=== PATIENT | male | born 1955 | race Caucasian/White ===

== ENCOUNTER 2019-05-16 07:17 | Outpatient (CLI) | payer OTHER, SELFPAY ==
[2019-05-16 07:34] LABS: Add Urine Microscopic? NO; Appearance Urine Clear (Clear); Basophils Absolute Auto 0.02 K/mm3 (0.00-0.10); Basophils Percent Auto 0.3 % (0.0-1.0); Bilirubin Urine Negative (Negative); Blood Urine Negative (Negative); Color Urine Yellow (Yellow); Eosinophils Absolute Auto 0.05 K/mm3 (0.02-0.50); Eosinophils Percent Auto 0.8 % (1.0-6.0); Glucose Urine UA Negative (Negative); Hematocrit 46.9 % (40.0-54.0); Hemoglobin 16.2 g/dL (14.0-18.0); Immature Granulocyte Absolute 0.02 K/mm3 (0.00-0.00); Immature Granulocyte Percent A 0.3 % (0.0-0.0); Ketones Urine Negative (Negative); Leukocyte Esterase Ur Negative LEU/UL (Negative); Lymphocytes Percent Auto 26.2 % (18.0-42.0); Mean Corpuscular HGB Conc 34.5 g/dL (32.0-36.0); Mean Corpuscular Hemoglobin 29.1 pg (27.0-31.0); Mean Corpuscular Volume 84.4 fL (78.0-102.0); Mean Platelet Volume 10.4 fl (8.7-11.0); Monocytes Absolute Auto 0.44 K/mm3 (0.10-0.90); Monocytes Percent Auto 6.8 % (2.0-11.0); Neutrophils Absolute Auto 4.3 K/mm3 (1.7-7.2); Neutrophils Percent Auto 65.6 % (50.0-70.0); Nitrate Urine Negative (Negative); Platelet Count Result 177 K/mm3 (150-420); Protein Urine Negative (Negative); Red Blood Count 5.56 M/mm3 (4.70-6.10); Red Cell Distribution Width 12.8 % (11.6-14.4); Urobilinogen Urine 0.2 mg/dL (0.2-1.0); White Blood Count 6.5 K/mm3 (4.8-10.8); pH Urine 5.5 (5.0-8.0)
[2019-05-16 07:43] LABS: Hemoglobin A1C 7.3 % (<5.7)
[2019-05-16 08:19] LABS: Creatinine Urine 127.42 mg/dL (40-278)
[2019-05-16 08:46] LABS: MALB Creatinine Ratio 9.6 mg/g (0-30); Microalbumin Urine Random 12.3 mg/L
[2019-05-16 08:54] LABS: Alanine Aminotransferase 53 U/L (16-63); Albumin Level 4.5 g/dL (3.4-5.0); Alkaline Phosphatase 65 U/L (46-116); Anion Gap 13.2 mmol/L (7-16); Aspartate Amino Transferase 23 U/L (15-37); Bilirubin,Total 0.8 mg/dL (0.00-1.00); Blood Urea Nitrogen 15 mg/dL (7-18); Calcium 9.2 mg/dL (8.5-10.1); Carbon Dioxide 32 mmol/L (21-32); Chloride 100 mmol/L (98-108); Cholesterol 190 mg/dL (0-200); Creatine Kinase 100 U/L (39-308); Estimated Glomerular Filt Rate > 60; Free T4 Free Thyroxine 1.12 ng/dL (0.76-1.46); Glucose 196 mg/dL (70-99); HDL Direct 35 mg/dL (40-60); LDL Cholesterol Calculated 110 mg/dL (<130); Osmolality Calculated 297 mOsm/kg (285-295); Potassium 4.2 mmol/L (3.5-5.1); Prostate Specific Antigen 0.5 ng/mL (< OR = 4.0); Sodium 141 mmol/L (136-145); Thyroid Stimulating Hormone 1.57 uIU/mL (0.36-3.74); Total Protein 7.9 g/dL (6.4-8.2); Triglycerides 223 mg/dL (0-150); Uric Acid 5.7 mg/dL (3.5-7.2)
== END 2019-05-16 07:18 | disposition home or self-care (01) ==
PROVIDERS: PCP Internal Medicine; Visit Provider Internal Medicine
DX: E78.5 Hyperlipidemia, unspecified (principal); E79.0 Hyperuricemia without signs of inflammatory arthritis and tophaceous disease; I10 Essential (primary) hypertension; E03.9 Hypothyroidism, unspecified; E11.65 Type 2 diabetes mellitus with hyperglycemia; Z12.5 Encounter for screening for malignant neoplasm of prostate
CPT/HCPCS: 36415; 80053; 80061; 81003; 82043; 82550; 83036; 84153; 84439; 84443; 84550; 85025; G0103

== ENCOUNTER 2019-09-13 13:21 | Outpatient (CLI) | payer OTHER, SELFPAY ==
--- NOTE | ~2019-09-13 | XR_ITS ---
EXAMINATION: XR foot LT min 3V DATE: 09/13/2019 13:39 INDICATION: Left foot pain, initial encounter TECHNIQUE: Dorsoplantar, lateral, and 2 oblique views of the left foot were obtained. COMPARISON: 12/31/2006 FINDINGS: There is an acute, traumatic, comminuted fracture of the first distal phalanx. Soft tissue swelling surrounds the fracture. The joint spaces are normal. No additional acute osseous findings ar e evident. Dorsal calcaneal enthesophyte is noted. IMPRESSION: 1. Comminuted fracture of the first distal phalanx. Reviewed, dictated and finalized at location A.
== END 2019-09-13 13:22 | disposition home or self-care (01) ==
PROVIDERS: PCP Internal Medicine; Visit Provider Internal Medicine
DX: S99.922A Unspecified injury of left foot, initial encounter (principal)
CPT/HCPCS: 73630

== ENCOUNTER 2019-10-28 07:26 | Outpatient (CLI) | payer OTHER, SELFPAY ==
[2019-10-28 07:39] LABS: Add Urine Microscopic? NO; Appearance Urine Clear (Clear); Bilirubin Urine Negative (Negative); Blood Urine Negative (Negative); Color Urine Yellow (Yellow); Glucose Urine UA Negative (Negative); Ketones Urine Negative (Negative); Leukocyte Esterase Ur Negative (Negative); Nitrate Urine Negative (Negative); Protein Urine Negative (Negative); Urobilinogen Urine 0.2 mg/dL (0.2-1.0); pH Urine 5.5 (5.0-8.0)
[2019-10-28 07:48] LABS: Creatinine Urine 99.31 mg/dL (40-278)
[2019-10-28 07:50] LABS: Hemoglobin A1C 6.9 % (<5.7)
[2019-10-28 07:57] LABS: MALB Creatinine Ratio 2.4 mg/g (0-30); Microalbumin Urine Random 2.4 mg/L
[2019-10-28 08:42] LABS: Alanine Aminotransferase 36 U/L (16-63); Albumin Level 3.9 g/dL (3.4-5.0); Alkaline Phosphatase 67 U/L (46-116); Anion Gap 7 mmol/L (8-16); Aspartate Amino Transferase 19 U/L (15-37); Bilirubin,Total 0.4 mg/dL (0.00-1.00); Blood Urea Nitrogen 15 mg/dL (7-18); Calcium 8.4 mg/dL (8.5-10.1); Carbon Dioxide 31 mmol/L (21-32); Chloride 103 mmol/L (98-108); Cholesterol 172 mg/dL (0-200); Creatine Kinase 131 U/L (39-308); Estimated Glomerular Filt Rate > 60; Glucose 174 mg/dL (70-99); HDL Direct 40 mg/dL (40-60); LDL Cholesterol Calculated 108 mg/dL (<130); Osmolality Calculated 296 mOsm/kg (285-295); Potassium 4.4 mmol/L (3.5-5.1); Prostate Specific Antigen 0.5 ng/mL (< OR = 4.0); Sodium 141 mmol/L (136-145); Thyroid Stimulating Hormone 0.91 uIU/mL (0.36-3.74); Triglycerides 119 mg/dL (0-150)
== END 2019-10-28 07:27 | disposition home or self-care (01) ==
LOC: CHSLAB 07:27
PROVIDERS: PCP Internal Medicine; Visit Provider Internal Medicine
DX: E78.2 Mixed hyperlipidemia (principal); I10 Essential (primary) hypertension; E11.65 Type 2 diabetes mellitus with hyperglycemia; E03.4 Atrophy of thyroid (acquired); Z12.5 Encounter for screening for malignant neoplasm of prostate
CPT/HCPCS: 36415; 80053; 80061; 81003; 82043; 82550; 83036; 84153; 84439; 84443; G0103

== ENCOUNTER 2020-02-13 16:10 | Outpatient (CLI) | payer OTHER, SELFPAY ==
--- NOTE | ~2020-02-13 | US_ITS ---
EXAMINATION: US scrotum doppler DATE: 02/13/2020 17:03 INDICATION: Hydrocele TECHNIQUE: Testicular sonogram utilizing grayscale and Doppler COMPARISON: None. FINDINGS: The right testis measures 4.8 x 3.9 x 2.9 cm. The left testis measures 4.4 x 3.9 x 3.1 cm. Symmetric normal grayscale appearance to both testes. There is normal vascular flow to both testes. There are l arge loculated anechoic fluid collections surrounding both the left and right testes, right larger th an left. On the left and right the fluid collection is by a few thin intervening septations . The left and right epididymides are poorly visualized and appeared distorted due to mass effect fro m the fluid collections. No varicocele. IMPRESSION: 1. Large bilateral septated anechoic peritesticular fluid collections which could represent either s equela of chronic exudative hydroceles or potentially large bilateral epididymal cysts. 2. Normal bilateral testes. Reviewed, dictated and finalized at location . T PROBATION OFFICER IMPRESSION: 1. Large bilateral septated anechoic peritesticular fluid collections which co uld represent either sequela of chronic exudative hydroceles or potentially lar ge bilateral epididymal cysts. 2. Normal bilateral testes.
== END 2020-02-13 16:11 | disposition home or self-care (01) ==
PROVIDERS: PCP Internal Medicine; Visit Provider Internal Medicine
DX: N43.3 Hydrocele, unspecified (principal)
CPT/HCPCS: 76870; 93976

== ENCOUNTER 2020-04-02 07:01 | Outpatient (CLI) | payer OTHER, SELFPAY ==
[2020-04-03 18:18] LABS: SARS-CoV-2 RNA PCR Negative
== END 2020-04-02 07:02 | disposition home or self-care (01) ==
PROVIDERS: PCP Internal Medicine; Visit Provider Nurse Practitioner Adult Health
DX: Z01.818 Encounter for other preprocedural examination (principal); Z20.822 Contact with and (suspected) exposure to COVID-19
CPT/HCPCS: C9803; U0003; U0005

== ENCOUNTER 2020-04-30 08:33 | Outpatient (CLI) | payer OTHER, SELFPAY ==
[2020-04-30 08:46] LABS: Basophils Absolute Auto 0.03 K/mm3 (0.00-0.10); Basophils Percent Auto 0.6 % (0.0-1.0); Eosinophils Absolute Auto 0.14 K/mm3 (0.02-0.50); Eosinophils Percent Auto 2.8 % (1.0-6.0); Hematocrit 42.5 % (40.0-54.0); Hemoglobin 14.8 g/dL (14.0-18.0); Immature Granulocyte Absolute 0.01 K/mm3 (0.00-0.00); Immature Granulocyte Percent A 0.2 % (0.0-0.0); Lymphocytes Percent Auto 28.3 % (18.0-42.0); Mean Corpuscular HGB Conc 34.8 g/dL (32.0-36.0); Mean Corpuscular Hemoglobin 29.5 pg (27.0-31.0); Mean Corpuscular Volume 84.8 fL (78.0-102.0); Mean Platelet Volume 9.9 fl (8.7-11.0); Monocytes Absolute Auto 0.37 K/mm3 (0.10-0.90); Monocytes Percent Auto 7.5 % (2.0-11.0); Neutrophils Percent Auto 60.6 % (50.0-70.0); Platelet Count Result 169 K/mm3 (150-420); Red Blood Count 5.01 M/mm3 (4.70-6.10); Red Cell Distribution Width 12.7 % (11.6-14.4)
[2020-04-30 08:48] LABS: Add Urine Microscopic? NO; Appearance Urine Clear (Clear); Bilirubin Urine Negative (Negative); Blood Urine Negative (Negative); Color Urine Yellow (Yellow); Glucose Urine UA Negative (Negative); Ketones Urine Negative (Negative); Leukocyte Esterase Ur Negative LEU/UL (Negative); Nitrate Urine Negative (Negative); Protein Urine Negative (Negative); Specific Grav Ur 1.025 (1.010-1.020); Urobilinogen Urine 0.2 mg/dL (0.2-1.0)
[2020-04-30 08:56] LABS: Hemoglobin A1C 6.5 % (<5.7)
[2020-04-30 09:01] LABS: Creatinine Urine 136.86 mg/dL (40-278); MALB Creatinine Ratio 9.4 mg/g (0-30); Microalbumin Urine Random < 13.0 mg/L
[2020-04-30 09:31] LABS: Alanine Aminotransferase 28 U/L (16-63); Albumin Level 4.1 g/dL (3.4-5.0); Alkaline Phosphatase 74 U/L (46-116); Anion Gap 9 mmol/L (8-16); Aspartate Amino Transferase 14 U/L (15-37); Bilirubin,Total 0.4 mg/dL (0.00-1.00); Blood Urea Nitrogen 16 mg/dL (7-18); Calcium 9.2 mg/dL (8.5-10.1); Carbon Dioxide 31 mmol/L (21-32); Chloride 103 mmol/L (98-108); Cholesterol 185 mg/dL (0-200); Creatine Kinase 101 U/L (39-308); Estimated Glomerular Filt Rate > 60; Free T4 Free Thyroxine 0.96 ng/dL (0.76-1.46); Glucose 155 mg/dL (70-99); HDL Direct 39 mg/dL (40-60); LDL Cholesterol Calculated 113 mg/dL (<130); Osmolality Calculated 300 mOsm/kg (285-295); Potassium 4.4 mmol/L (3.5-5.1); Sodium 143 mmol/L (136-145); Thyroid Stimulating Hormone 1.47 uIU/mL (0.36-3.74); Total Protein 7.1 g/dL (6.4-8.2); Triglycerides 166 mg/dL (0-150); Uric Acid 5.8 mg/dL (3.5-7.2)
== END 2020-04-30 08:34 | disposition home or self-care (01) ==
LOC: CHSLAB 08:35
PROVIDERS: PCP Internal Medicine; Visit Provider Internal Medicine
DX: E78.5 Hyperlipidemia, unspecified (principal); I10 Essential (primary) hypertension; E79.0 Hyperuricemia without signs of inflammatory arthritis and tophaceous disease; E11.65 Type 2 diabetes mellitus with hyperglycemia; E03.9 Hypothyroidism, unspecified; Z20.822 Contact with and (suspected) exposure to COVID-19
CPT/HCPCS: 36415; 80053; 80061; 81003; 82043; 82550; 83036; 84439; 84443; 84481; 84550; 85025; 86769

== ENCOUNTER 2020-11-02 06:49 | Outpatient (CLI) | payer OTHER, SELFPAY ==
[2020-11-02 07:17] LABS: Basophils Absolute Auto 0.03 K/mm3 (0.00-0.10); Basophils Percent Auto 0.6 % (0.0-1.0); Eosinophils Absolute Auto 0.08 K/mm3 (0.02-0.50); Eosinophils Percent Auto 1.5 % (1.0-6.0); Hematocrit 45.7 % (40.0-54.0); Hemoglobin 15.8 g/dL (14.0-18.0); Immature Granulocyte Absolute 0.01 K/mm3 (0.00-0.00); Immature Granulocyte Percent A 0.2 % (0.0-0.0); Lymphocytes Absolute Auto 1.67 K/mm3 (1.10-4.50); Mean Corpuscular HGB Conc 34.6 g/dL (32.0-36.0); Mean Corpuscular Hemoglobin 29.9 pg (27.0-31.0); Mean Corpuscular Volume 86.4 fL (78.0-102.0); Mean Platelet Volume 10.2 fl (8.7-11.0); Monocytes Absolute Auto 0.42 K/mm3 (0.10-0.90); Monocytes Percent Auto 7.8 % (2.0-11.0); Neutrophils Absolute Auto 3.2 K/mm3 (1.7-7.2); Neutrophils Percent Auto 58.9 % (50.0-70.0); Platelet Count Result 182 K/mm3 (150-420); Red Blood Count 5.29 M/mm3 (4.70-6.10); Red Cell Distribution Width 12.8 % (11.6-14.4); White Blood Count 5.4 K/mm3 (4.8-10.8)
[2020-11-02 07:21] LABS: Add Urine Microscopic? NO; Appearance Urine Clear (Clear); Bilirubin Urine Negative (Negative); Blood Urine Negative (Negative); Color Urine Light Yellow (Yellow); Glucose Urine UA Negative (Negative); Ketones Urine Negative (Negative); Leukocyte Esterase Ur Negative (Negative); Nitrate Urine Negative (Negative); Protein Urine Negative (Negative); Urobilinogen Urine 0.2 mg/dL (0.2-1.0)
[2020-11-02 07:25] LABS: Creatinine Urine 89.69 mg/dL (40-278); MALB Creatinine Ratio 14.4 mg/g (0-30); Microalbumin Urine Random < 13.0 mg/L
[2020-11-02 07:27] LABS: Hemoglobin A1C 6.9 % (<5.7)
[2020-11-02 08:19] LABS: Alanine Aminotransferase 35 U/L (16-63); Albumin Level 4.1 g/dL (3.4-5.0); Alkaline Phosphatase 71 U/L (46-116); Anion Gap 6 mmol/L (8-16); Aspartate Amino Transferase 19 U/L (15-37); Bilirubin,Total 0.4 mg/dL (0.00-1.00); Blood Urea Nitrogen 18 mg/dL (7-18); Calcium 8.9 mg/dL (8.5-10.1); Carbon Dioxide 31 mmol/L (21-32); Chloride 105 mmol/L (98-108); Cholesterol 187 mg/dL (0-200); Creatine Kinase 196 U/L (39-308); Estimated Glomerular Filt Rate > 60; Free T3 2.77 pg/mL (2.18-3.98); Free T4 Free Thyroxine 1.02 ng/dL (0.76-1.46); Glucose 152 mg/dL (70-99); HDL Direct 40 mg/dL (40-60); LDL Cholesterol Calculated 117 mg/dL (<130); Osmolality Calculated 298 mOsm/kg (285-295); Potassium 4.3 mmol/L (3.5-5.1); Prostate Specific Antigen 0.5 ng/mL (< OR = 4.0); Sodium 142 mmol/L (136-145); Thyroid Stimulating Hormone 0.92 uIU/mL (0.36-3.74); Total Protein 7.4 g/dL (6.4-8.2); Triglycerides 150 mg/dL (0-150); Uric Acid 5.7 mg/dL (3.5-7.2)
== END 2020-11-02 06:50 | disposition home or self-care (01) ==
LOC: CHSLAB 06:51
PROVIDERS: PCP Internal Medicine; Visit Provider Internal Medicine
DX: E78.5 Hyperlipidemia, unspecified (principal); E79.0 Hyperuricemia without signs of inflammatory arthritis and tophaceous disease; I10 Essential (primary) hypertension; E03.9 Hypothyroidism, unspecified; E11.65 Type 2 diabetes mellitus with hyperglycemia; Z12.5 Encounter for screening for malignant neoplasm of prostate
CPT/HCPCS: 36415; 80053; 80061; 81003; 82043; 82550; 83036; 84153; 84439; 84443; 84481; 84550; 85025; G0103

== ENCOUNTER 2021-04-28 07:29 | Outpatient (CLI) | payer OTHER, SELFPAY ==
[2021-04-28 07:50] LABS: Add Urine Microscopic? NO; Appearance Urine Clear (Clear); Bilirubin Urine Negative (Negative); Blood Urine Negative (Negative); Color Urine Light Yellow (Yellow); Glucose Urine UA Negative (Negative); Ketones Urine Negative (Negative); Leukocyte Esterase Ur Negative (Negative); Nitrate Urine Negative (Negative); Protein Urine Negative (Negative); Urobilinogen Urine 0.2 mg/dL (0.2-1.0)
[2021-04-28 08:02] LABS: Hemoglobin A1C 6.5 % (<5.7)
[2021-04-28 08:05] LABS: MALB Creatinine Ratio 13.9 mg/g (0-30); Microalbumin Urine Random < 13.0 mg/L
[2021-04-28 08:54] LABS: Alanine Aminotransferase 27 U/L (16-63); Alkaline Phosphatase 68 U/L (46-116); Anion Gap 8 mmol/L (8-16); Aspartate Amino Transferase 14 U/L (15-37); Bilirubin,Total 0.4 mg/dL (0.00-1.00); Blood Urea Nitrogen 16 mg/dL (7-18); Calcium 8.9 mg/dL (8.5-10.1); Carbon Dioxide 32 mmol/L (21-32); Chloride 100 mmol/L (98-108); Cholesterol 180 mg/dL (0-200); Creatine Kinase 101 U/L (39-308); Estimated Glomerular Filt Rate > 60; Free T3 2.52 pg/mL (2.18-3.98); Free T4 Free Thyroxine 0.91 ng/dL (0.76-1.46); Glucose 145 mg/dL (70-99); HDL Direct 41 mg/dL (40-60); LDL Cholesterol Calculated 113 mg/dL (<130); Osmolality Calculated 294 mOsm/kg (285-295); Potassium 3.9 mmol/L (3.5-5.1); Sodium 140 mmol/L (136-145); Thyroid Stimulating Hormone 1.36 uIU/mL (0.36-3.74); Triglycerides 130 mg/dL (0-150)
== END 2021-04-28 07:30 | disposition home or self-care (01) ==
LOC: CHSLAB 07:31
PROVIDERS: PCP Internal Medicine; Visit Provider Internal Medicine
DX: E78.2 Mixed hyperlipidemia (principal); I10 Essential (primary) hypertension; E79.0 Hyperuricemia without signs of inflammatory arthritis and tophaceous disease; E03.8 Other specified hypothyroidism; E11.65 Type 2 diabetes mellitus with hyperglycemia
CPT/HCPCS: 36415; 80053; 80061; 81003; 82043; 82550; 83036; 84439; 84443; 84481

== ENCOUNTER 2021-08-26 11:34 | Outpatient (CLI) | payer MEDICARE, SELFPAY ==
--- NOTE | ~2021-08-26 | XR_ITS ---
XR lumbar spine 2-3V 08/26/2021 12:06 Indication: Back pain Procedure: 3 views of the lumbar spine Comparison: 11/07/2016 Findings: Vertebral body heights are maintained. There is disc narrowing at all lumbar levels. There is moderate facet hypertrophy at L3-4 through L5-S1. There are prominent bridging osteophytes at L1-2 and L2-3. Pedicles intact. Sacral foramen are symmetric. No acute fracture or traumatic malalignment . Impression: 1: Moderate lumbar spondylosis. Reviewed, dictated and finalized at location B. Impression: 1: Moderate lumbar spondylosis.
[2021-08-26 11:48] LABS: Hematocrit 44.2 % (37.0-46.0); Mean Corpuscular HGB Conc 33.9 g/dL (32.0-36.0); Mean Corpuscular Hemoglobin 29.6 pg (27.0-31.0); Mean Corpuscular Volume 87.2 fL (78.0-102.0); Mean Platelet Volume 10.6 fl (8.7-11.0); Platelet Count Result 115 K/mm3 (150-420); Red Blood Count 5.07 M/mm3 (4.70-6.10); White Blood Count 2.8 K/mm3 (4.8-10.8)
[2021-08-26 12:18] LABS: Creatine Kinase 88 U/L (39-308)
[2021-08-26 13:20] LABS: Band Neutrophils Percent 2 % (0-6); Eosinophils Absolute Manual 0.02 K/mm3 (0.02-0.5); Eosinophils Percent Manual 1 % (1-6); Lymphocytes Percent Manual 25 % (18-44); Monocytes Absolute Manual 0.25 K/mm3 (0.1-0.90); Monocytes Percent Manual 9 % (3-9); Myelocytes Percent 1 %; Neutrophils Absolute Manual 1.79 K/mm3 (1.3-6.7); Neutrophils Percent Manual 62 % (46-73); Platelet Estimate Adequate (Adequate); Total Cells Counted 100
[2021-08-29 19:37] LABS: Lyme Disease Ab (IgM), Blot Negative (Negative); Lyme Disease Ab(IgG), Blot Negative (Negative)
== END 2021-08-26 11:35 | disposition home or self-care (01) ==
LOC: CHSLAB 11:39
PROVIDERS: PCP Internal Medicine; Visit Provider Internal Medicine
DX: M54.50 Low back pain, unspecified (principal); M79.10 Myalgia, unspecified site; T14.8XXA Other injury of unspecified body region, initial encounter
CPT/HCPCS: 36415; 72100; 82550; 85025; 86617

== ENCOUNTER 2021-09-09 07:38 | Outpatient (CLI) | payer MEDICARE, SELFPAY ==
[2021-09-09 07:50] LABS: Basophils Absolute Auto 0.04 K/mm3 (0.00-0.10); Basophils Percent Auto 0.7 % (0.0-1.0); Eosinophils Absolute Auto 0.13 K/mm3 (0.02-0.50); Eosinophils Percent Auto 2.2 % (1.0-6.0); Hematocrit 42.9 % (37.0-46.0); Hemoglobin 14.8 g/dL (12.4-15.3); Immature Granulocyte Absolute 0.02 K/mm3 (0.00-0.00); Immature Granulocyte Percent A 0.3 % (0.0-0.0); Lymphocytes Absolute Auto 1.88 K/mm3 (1.10-4.50); Lymphocytes Percent Auto 32.1 % (18.0-42.0); Mean Corpuscular HGB Conc 34.5 g/dL (32.0-36.0); Mean Corpuscular Hemoglobin 29.8 pg (27.0-31.0); Mean Corpuscular Volume 86.5 fL (78.0-102.0); Monocytes Absolute Auto 0.53 K/mm3 (0.10-0.90); Monocytes Percent Auto 9.1 % (2.0-11.0); Neutrophils Absolute Auto 3.3 K/mm3 (1.7-7.2); Neutrophils Percent Auto 55.6 % (50.0-70.0); Platelet Count Result 146 K/mm3 (150-420); Red Blood Count 4.96 M/mm3 (4.70-6.10); Red Cell Distribution Width 13.1 % (11.6-14.4); White Blood Count 5.9 K/mm3 (4.8-10.8)
== END 2021-09-09 07:39 | disposition home or self-care (01) ==
LOC: CHSLAB 07:40
PROVIDERS: PCP Internal Medicine; Visit Provider Internal Medicine
DX: D72.819 Decreased white blood cell count, unspecified (principal)
CPT/HCPCS: 36415; 85025

== ENCOUNTER 2021-11-03 07:32 | Outpatient (CLI) | payer MEDICARE, SELFPAY ==
[2021-11-03 07:44] LABS: Basophils Absolute Auto 0.02 K/mm3 (0.00-0.10); Basophils Percent Auto 0.4 % (0.0-1.0); Eosinophils Absolute Auto 0.05 K/mm3 (0.02-0.50); Hemoglobin 15.5 g/dL (12.4-15.3); Immature Granulocyte Absolute 0.01 K/mm3 (0.00-0.00); Immature Granulocyte Percent A 0.2 % (0.0-0.0); Lymphocytes Absolute Auto 1.45 K/mm3 (1.10-4.50); Lymphocytes Percent Auto 29.2 % (18.0-42.0); Mean Corpuscular HGB Conc 34.4 g/dL (32.0-36.0); Mean Corpuscular Hemoglobin 30.1 pg (27.0-31.0); Mean Corpuscular Volume 87.4 fL (78.0-102.0); Mean Platelet Volume 10.4 fl (8.7-11.0); Monocytes Absolute Auto 0.34 K/mm3 (0.10-0.90); Monocytes Percent Auto 6.9 % (2.0-11.0); Neutrophils Absolute Auto 3.1 K/mm3 (1.7-7.2); Neutrophils Percent Auto 62.3 % (50.0-70.0); Platelet Count Result 163 K/mm3 (150-420); Red Blood Count 5.15 M/mm3 (4.70-6.10); Red Cell Distribution Width 12.6 % (11.6-14.4)
[2021-11-03 07:49] LABS: Add Urine Microscopic? NO; Appearance Urine Clear (Clear); Bilirubin Urine Negative (Negative); Blood Urine Negative (Negative); Color Urine Light Yellow (Yellow); Glucose Urine UA Negative (Negative); Ketones Urine Negative (Negative); Leukocyte Esterase Ur Negative LEU/UL (Negative); Nitrate Urine Negative (Negative); Protein Urine Negative (Negative); Urobilinogen Urine 0.2 mg/dL (0.2-1.0)
[2021-11-03 08:08] LABS: Creatinine Urine 98.16 mg/dL (40-278); MALB Creatinine Ratio 13.2 mg/g (0-30); Microalbumin Urine Random < 13.0 mg/L
[2021-11-03 08:21] LABS: Alanine Aminotransferase 29 U/L (16-63); Albumin Level 4.1 g/dL (3.4-5.0); Alkaline Phosphatase 66 U/L (46-116); Anion Gap 7 mmol/L (8-16); Aspartate Amino Transferase 14 U/L (15-37); Bilirubin,Total 0.4 mg/dL (0.00-1.00); Blood Urea Nitrogen 15 mg/dL (7-18); Calcium 8.9 mg/dL (8.5-10.1); Carbon Dioxide 30 mmol/L (21-32); Chloride 103 mmol/L (98-108); Cholesterol 162 mg/dL (0-200); Creatine Kinase 103 U/L (39-308); Estimated Glomerular Filt Rate > 60; Free T3 2.55 pg/mL (2.18-3.98); Free T4 Free Thyroxine 0.93 ng/dL (0.76-1.46); Glucose 171 mg/dL (70-99); HDL Direct 43 mg/dL (40-60); LDL Cholesterol Calculated 92 mg/dL (<130); Osmolality Calculated 294 mOsm/kg (285-295); Potassium 4.1 mmol/L (3.5-5.1); Prostate Specific Antigen 0.7 ng/mL (< OR = 4.0); Sodium 140 mmol/L (136-145); Thyroid Stimulating Hormone 1.05 uIU/mL (0.36-3.74); Total Protein 7.4 g/dL (6.4-8.2); Triglycerides 135 mg/dL (0-150); Uric Acid 6.1 mg/dL (3.5-7.2)
[2021-11-03 08:38] LABS: Hemoglobin A1C 6.1 % (<5.7)
== END 2021-11-03 07:33 | disposition home or self-care (01) ==
LOC: CHSLAB 07:35
PROVIDERS: PCP Internal Medicine; Visit Provider Internal Medicine
DX: E78.5 Hyperlipidemia, unspecified (principal); E79.0 Hyperuricemia without signs of inflammatory arthritis and tophaceous disease; E03.9 Hypothyroidism, unspecified; E11.65 Type 2 diabetes mellitus with hyperglycemia; Z12.5 Encounter for screening for malignant neoplasm of prostate
CPT/HCPCS: 36415; 80053; 80061; 81003; 82043; 82550; 83036; 84153; 84439; 84443; 84481; 84550; 85025; G0103

== ENCOUNTER 2022-03-18 11:46 | Outpatient (CLI) | payer MEDICARE, SELFPAY ==
--- NOTE | ~2022-03-18 | XR_ITS ---
Left ankle Technique: AP, oblique, and lateral views were obtained. Clinical History: Pain Findings: No acute fracture or dislocation is seen. Osseous alignment is anatomic. Ankle mortise and other visualized joint spaces are preserved. Soft tissues are otherwise unremarkable. Impression: Unremarkable left ankle. Reviewed, dictated and finalized at location . [employer] Impression: Unremarkable left ankle.
--- NOTE | ~2022-03-18 | XR_ITS ---
EXAMINATION: XR foot LT min 3V DATE: 03/18/2022 12:21 INDICATION: Left foot pain TECHNIQUE: Dorsoplantar, lateral, and 2 oblique views of the left foot were obtained. COMPARISON: 09/13/2019 FINDINGS: Bone alignment is normal. There is no fracture. 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 The soft tissues are unremarkable. P osterior and plantar calcaneal enthesophytes are noted. IMPRESSION: 1. No acute osseous abnormality. Reviewed, dictated and finalized at location B. [facility]
== END 2022-03-18 11:47 | disposition home or self-care (01) ==
LOC: CHSIMG 11:48
PROVIDERS: PCP Internal Medicine; Visit Provider Internal Medicine
DX: M25.572 Pain in left ankle and joints of left foot (principal)
CPT/HCPCS: 73610; 73630

== ENCOUNTER 2022-05-07 08:01 | Outpatient (CLI) | payer MEDICARE, SELFPAY ==
[2022-05-07 08:20] LABS: Add Urine Microscopic? NO; Appearance Urine Clear (Clear); Basophils Absolute Auto 0.02 K/mm3 (0.00-0.10); Basophils Percent Auto 0.5 % (0.0-1.0); Bilirubin Urine Negative (Negative); Blood Urine Negative (Negative); Color Urine Light Yellow (Yellow); Eosinophils Absolute Auto 0.07 K/mm3 (0.02-0.50); Eosinophils Percent Auto 1.6 % (1.0-6.0); Glucose Urine UA Negative (Negative); Hematocrit 44.3 % (37.0-46.0); Hemoglobin 15.3 g/dL (12.4-15.3); Immature Granulocyte Absolute 0.02 K/mm3 (0.00-0.00); Immature Granulocyte Percent A 0.5 % (0.0-0.0); Ketones Urine Negative (Negative); Leukocyte Esterase Ur Negative LEU/UL (Negative); Lymphocytes Percent Auto 30.1 % (18.0-42.0); Mean Corpuscular HGB Conc 34.5 g/dL (32.0-36.0); Mean Corpuscular Hemoglobin 29.8 pg (27.0-31.0); Mean Corpuscular Volume 86.4 fL (78.0-102.0); Mean Platelet Volume 10.3 fl (8.7-11.0); Monocytes Absolute Auto 0.34 K/mm3 (0.10-0.90); Monocytes Percent Auto 7.9 % (2.0-11.0); Neutrophils Absolute Auto 2.6 K/mm3 (1.7-7.2); Neutrophils Percent Auto 59.4 % (50.0-70.0); Nitrate Urine Negative (Negative); Platelet Count Result 170 K/mm3 (150-420); Protein Urine Negative (Negative); Red Blood Count 5.13 M/mm3 (4.70-6.10); Red Cell Distribution Width 12.8 % (11.6-14.4); Specific Grav Ur 1.015 (1.010-1.020); Urobilinogen Urine 0.2 mg/dL (0.2-1.0); White Blood Count 4.3 K/mm3 (4.8-10.8)
[2022-05-07 08:34] LABS: Creatinine Urine 103.15 mg/dL (40-278); MALB Creatinine Ratio 12.6 mg/g (0-30); Microalbumin Urine Random < 13.0 mg/L
[2022-05-07 08:38] LABS: Hemoglobin A1C 7.6 % (<5.7)
[2022-05-07 08:54] LABS: Alanine Aminotransferase 26 U/L (16-63); Alkaline Phosphatase 84 U/L (46-116); Anion Gap 4 mmol/L (8-16); Aspartate Amino Transferase 13 U/L (15-37); Bilirubin,Total 0.4 mg/dL (0.00-1.00); Blood Urea Nitrogen 13 mg/dL (7-18); Calcium 8.7 mg/dL (8.5-10.1); Carbon Dioxide 33 mmol/L (21-32); Chloride 100 mmol/L (98-108); Cholesterol 187 mg/dL (0-200); Creatine Kinase 86 U/L (39-308); Estimated Glomerular Filt Rate > 60; Glucose 204 mg/dL (70-99); HDL Direct 39 mg/dL (40-60); LDL Cholesterol Calculated 123 mg/dL (<130); Osmolality Calculated 290 mOsm/kg (285-295); Potassium 4.4 mmol/L (3.5-5.1); Sodium 137 mmol/L (136-145); Total Protein 7.3 g/dL (6.4-8.2); Triglycerides 126 mg/dL (0-150)
== END 2022-05-07 08:02 | disposition home or self-care (01) ==
PROVIDERS: PCP Internal Medicine; Visit Provider Internal Medicine
DX: E78.2 Mixed hyperlipidemia (principal); E79.0 Hyperuricemia without signs of inflammatory arthritis and tophaceous disease; I10 Essential (primary) hypertension; N39.0 Urinary tract infection, site not specified; E11.65 Type 2 diabetes mellitus with hyperglycemia
CPT/HCPCS: 36415; 80053; 80061; 81003; 82043; 82550; 83036; 84550; 85025

== ENCOUNTER 2022-08-21 07:31 | Outpatient (CLI) | payer MEDICARE, SELFPAY ==
[2022-08-21 08:04] LABS: Hemoglobin A1C 5.9 % (<5.7)
[2022-08-21 08:33] LABS: Alanine Aminotransferase 54 U/L (16-63); Alkaline Phosphatase 75 U/L (46-116); Anion Gap 8 mmol/L (8-16); Aspartate Amino Transferase 24 U/L (15-37); Bilirubin,Total 0.3 mg/dL (0.00-1.00); Blood Urea Nitrogen 17 mg/dL (7-18); Carbon Dioxide 30 mmol/L (21-32); Chloride 102 mmol/L (98-108); Cholesterol 194 mg/dL (0-200); Creatine Kinase 112 U/L (39-308); Estimated Glomerular Filt Rate > 60; Glucose 167 mg/dL (70-99); HDL Direct 38 mg/dL (40-60); LDL Cholesterol Calculated 106 mg/dL (<130); Osmolality Calculated 295 mOsm/kg (285-295); Potassium 4.3 mmol/L (3.5-5.1); Sodium 140 mmol/L (136-145); Total Protein 7.4 g/dL (6.4-8.2); Triglycerides 250 mg/dL (0-150)
== END 2022-08-21 07:32 | disposition home or self-care (01) ==
LOC: CHSLAB 07:33
PROVIDERS: PCP Internal Medicine; Visit Provider Internal Medicine
DX: E11.65 Type 2 diabetes mellitus with hyperglycemia (principal); E78.2 Mixed hyperlipidemia
CPT/HCPCS: 36415; 80053; 80061; 82550; 83036

== ENCOUNTER 2022-11-25 07:26 | Outpatient (CLI) | payer MEDICARE, SELFPAY ==
[2022-11-25 07:44] LABS: Appearance Urine Clear (Clear); Basophils Absolute Auto 0.01 K/mm3 (0.00-0.10); Basophils Percent Auto 0.2 % (0.0-1.0); Bilirubin Urine Negative (Negative); Blood Urine Negative (Negative); Color Urine Light Yellow (Yellow); Eosinophils Absolute Auto 0.06 K/mm3 (0.02-0.50); Eosinophils Percent Auto 1.2 % (1.0-6.0); Glucose Urine UA Negative (Negative); Hematocrit 43.5 % (37.0-46.0); Hemoglobin 15.3 g/dL (12.4-15.3); Ketones Urine Negative (Negative); Leukocyte Esterase Ur Negative LEU/UL (Negative); Lymphocytes Absolute Auto 1.39 K/mm3 (1.10-4.50); Lymphocytes Percent Auto 28.5 % (18.0-42.0); Mean Corpuscular HGB Conc 35.2 g/dL (32.0-36.0); Mean Corpuscular Volume 88.1 fL (78.0-102.0); Mean Platelet Volume 9.7 fl (8.7-11.0); Monocytes Absolute Auto 0.36 K/mm3 (0.10-0.90); Monocytes Percent Auto 7.4 % (2.0-11.0); Neutrophils Absolute Auto 3.1 K/mm3 (1.7-7.2); Neutrophils Percent Auto 62.7 % (50.0-70.0); Nitrate Urine Negative (Negative); Platelet Count Result 161 K/mm3 (150-420); Protein Urine Negative (Negative); Red Blood Count 4.94 M/mm3 (4.70-6.10); Red Cell Distribution Width 12.5 % (11.6-14.4); Urobilinogen Urine 0.2 mg/dL (0.2-1.0); White Blood Count 4.9 K/mm3 (4.8-10.8)
[2022-11-25 07:50] LABS: Add Urine Microscopic? NO
[2022-11-25 07:55] LABS: Creatinine Urine 130.06 mg/dL (40-278); MALB Creatinine Ratio 9.9 mg/g (0-30); Microalbumin Urine Random < 13.0 mg/L
[2022-11-25 07:56] LABS: Hemoglobin A1C 5.8 % (<5.7)
[2022-11-25 08:50] LABS: Alanine Aminotransferase 29 U/L (16-63); Albumin Level 3.9 g/dL (3.4-5.0); Alkaline Phosphatase 85 U/L (46-116); Anion Gap 6 mmol/L (8-16); Aspartate Amino Transferase 16 U/L (15-37); Bilirubin,Total 0.4 mg/dL (0.00-1.00); Blood Urea Nitrogen 14 mg/dL (7-18); Calcium 9.1 mg/dL (8.5-10.1); Carbon Dioxide 33 mmol/L (21-32); Chloride 102 mmol/L (98-108); Cholesterol 173 mg/dL (0-200); Creatine Kinase 97 U/L (39-308); Estimated Glomerular Filt Rate > 60; Free T3 2.54 pg/mL (2.18-3.98); Free T4 Free Thyroxine 0.82 ng/dL (0.76-1.46); Glucose 136 mg/dL (70-99); HDL Direct 40 mg/dL (40-60); LDL Cholesterol Calculated 106 mg/dL (<130); Osmolality Calculated 294 mOsm/kg (285-295); Potassium 4.2 mmol/L (3.5-5.1); Prostate Specific Antigen 0.7 ng/mL (< OR = 4.0); Sodium 141 mmol/L (136-145); Thyroid Stimulating Hormone 1.76 uIU/mL (0.36-3.74); Total Protein 7.1 g/dL (6.4-8.2); Triglycerides 134 mg/dL (0-150); Uric Acid 5.8 mg/dL (3.5-7.2)
== END 2022-11-25 07:27 | disposition home or self-care (01) ==
LOC: CHSLAB 07:28
PROVIDERS: PCP Internal Medicine; Visit Provider Internal Medicine
DX: E11.65 Type 2 diabetes mellitus with hyperglycemia (principal); E78.2 Mixed hyperlipidemia; N39.0 Urinary tract infection, site not specified; E03.9 Hypothyroidism, unspecified; E79.0 Hyperuricemia without signs of inflammatory arthritis and tophaceous disease; Z12.5 Encounter for screening for malignant neoplasm of prostate
CPT/HCPCS: 36415; 80053; 80061; 81003; 82043; 82550; 83036; 84153; 84439; 84443; 84481; 84550; 85025; G0103

== ENCOUNTER 2023-03-31 07:29 | Outpatient (CLI) | payer MEDICARE, SELFPAY ==
[2023-03-31 07:57] LABS: Hemoglobin A1C 5.7 % (<5.7)
[2023-03-31 08:32] LABS: Anion Gap 6 mmol/L (8-16); Blood Urea Nitrogen 11 mg/dL (7-18); Calcium 9.2 mg/dL (8.5-10.1); Carbon Dioxide 33 mmol/L (21-32); Chloride 100 mmol/L (98-108); Estimated Glomerular Filt Rate > 60; Glucose 125 mg/dL (70-99); Osmolality Calculated 288 mOsm/kg (285-295); Potassium 4.7 mmol/L (3.5-5.1); Sodium 139 mmol/L (136-145)
== END 2023-03-31 07:30 | disposition home or self-care (01) ==
LOC: CHSLAB 07:33
PROVIDERS: PCP Internal Medicine; Visit Provider Internal Medicine
DX: E11.65 Type 2 diabetes mellitus with hyperglycemia (principal)
CPT/HCPCS: 36415; 80048; 83036

== ENCOUNTER 2023-06-28 07:31 | Outpatient (CLI) | payer MEDICARE, SELFPAY ==
[2023-06-28 07:50] LABS: Basophils Absolute Auto 0.01 K/mm3 (0.00-0.10); Basophils Percent Auto 0.2 % (0.0-1.0); Eosinophils Absolute Auto 0.04 K/mm3 (0.02-0.50); Eosinophils Percent Auto 0.9 % (1.0-6.0); Hematocrit 44.6 % (37.0-46.0); Hemoglobin 15.6 g/dL (12.4-15.3); Immature Granulocyte Absolute 0.01 K/mm3 (0.00-0.00); Immature Granulocyte Percent A 0.2 % (0.0-0.0); Lymphocytes Absolute Auto 1.27 K/mm3 (1.10-4.50); Lymphocytes Percent Auto 27.4 % (18.0-42.0); Mean Corpuscular Hemoglobin 30.2 pg (27.0-31.0); Mean Corpuscular Volume 86.3 fL (78.0-102.0); Mean Platelet Volume 9.8 fl (8.7-11.0); Monocytes Absolute Auto 0.42 K/mm3 (0.10-0.90); Monocytes Percent Auto 9.1 % (2.0-11.0); Neutrophils Absolute Auto 2.89 K/mm3 (1.70-7.20); Neutrophils Percent Auto 62.2 % (50.0-70.0); Platelet Count Result 172 K/mm3 (150-420); Red Blood Count 5.17 M/mm3 (4.70-6.10); Red Cell Distribution Width 12.6 % (11.6-14.4); White Blood Count 4.6 K/mm3 (4.8-10.8)
[2023-06-28 07:51] LABS: Appearance Urine Clear (Clear); Bilirubin Urine Negative (Negative); Blood Urine Negative (Negative); Color Urine Yellow (Yellow); Glucose Urine UA Negative (Negative); Ketones Urine Negative (Negative); Leukocyte Esterase Ur Negative LEU/UL (Negative); Nitrate Urine Negative (Negative); Protein Urine Negative (Negative); Specific Grav Ur 1.015 (1.010-1.020); Urobilinogen Urine 0.2 mg/dL (0.2-1.0); pH Urine 6.5 (5.0-8.0)
[2023-06-28 07:52] LABS: Add Urine Microscopic? NO
[2023-06-28 08:34] LABS: Alanine Aminotransferase 9 U/L (16-63); Albumin Level 4.1 g/dL (3.4-5.0); Alkaline Phosphatase 81 U/L (46-116); Anion Gap 5 mmol/L (4-12); Aspartate Amino Transferase 14 U/L (15-37); Bilirubin,Total 0.5 mg/dL (0.00-1.00); Blood Urea Nitrogen 12 mg/dL (7-18); Calcium 9.2 mg/dL (8.5-10.1); Carbon Dioxide 34 mmol/L (21-32); Chloride 103 mmol/L (98-108); Cholesterol 169 mg/dL (0-200); Creatine Kinase 67 U/L (39-308); Estimated Glomerular Filt Rate > 60; Free T4 Free Thyroxine 0.84 ng/dL (0.76-1.46); Glucose 113 mg/dL (70-99); HDL Direct 56 mg/dL (40-60); LDL Cholesterol Calculated 100 mg/dL (<130); Osmolality Calculated 294 mOsm/kg (285-295); Potassium 4.6 mmol/L (3.5-5.1); Sodium 142 mmol/L (136-145); Thyroid Stimulating Hormone 1.02 uIU/mL (0.36-3.74); Triglycerides 66 mg/dL (0-150)
== END 2023-06-28 07:32 | disposition home or self-care (01) ==
LOC: CHSLAB 07:34
PROVIDERS: PCP Internal Medicine; Visit Provider Internal Medicine
DX: E78.2 Mixed hyperlipidemia (principal); E79.0 Hyperuricemia without signs of inflammatory arthritis and tophaceous disease; I10 Essential (primary) hypertension; E03.9 Hypothyroidism, unspecified; E11.65 Type 2 diabetes mellitus with hyperglycemia; N39.0 Urinary tract infection, site not specified
CPT/HCPCS: 36415; 80053; 80061; 81003; 82550; 83036; 84439; 84443; 84550; 85025

== ENCOUNTER 2023-12-27 07:24 | Outpatient (CLI) | payer MEDICARE, SELFPAY ==
[2023-12-27 07:38] LABS: Hematocrit 47.3 % (37.0-46.0); Hemoglobin 16.4 g/dL (12.4-15.3); Mean Corpuscular HGB Conc 34.7 g/dL (32-36); Mean Corpuscular Volume 86.5 fL (78.0-102.0); Mean Platelet Volume 10.1 fl (8.7-11.0); Platelet Count Result 163 K/mm3 (150-420); Red Blood Count 5.47 M/mm3 (4.70-6.10); Red Cell Distribution Width 12.8 % (11.6-14.4); White Blood Count 6.2 K/mm3 (4.8-10.8)
[2023-12-27 07:39] LABS: Add Urine Microscopic? NO; Appearance Urine Clear (Clear); Bilirubin Urine Negative (Negative); Blood Urine Negative (Negative); Color Urine Light Yellow (Yellow); Glucose Urine UA Negative (Negative); Ketones Urine Negative (Negative); Leukocyte Esterase Ur Negative (Negative); Nitrate Urine Negative (Negative); Protein Urine Negative (Negative); Urobilinogen Urine 0.2 mg/dL (0.2-1.0)
[2023-12-27 08:03] LABS: Creatinine Urine 118.79 mg/dL (40-278); MALB Creatinine Ratio 10.9 mg/g (0-30); Microalbumin Urine Random < 13.0 mg/L
[2023-12-27 08:23] LABS: Hemoglobin A1C 5.3 % (<5.7)
[2023-12-27 08:47] LABS: Alanine Aminotransferase 9 U/L (16-63); Albumin Level 4.2 g/dL (3.4-5.0); Alkaline Phosphatase 93 U/L (46-116); Anion Gap 5 mmol/L (4-12); Aspartate Amino Transferase 12 U/L (15-37); Bilirubin,Total 0.4 mg/dL (0.00-1.00); Blood Urea Nitrogen 13 mg/dL (7-18); Calcium 9.1 mg/dL (8.5-10.1); Carbon Dioxide 34 mmol/L (21-32); Chloride 100 mmol/L (98-108); Cholesterol 173 mg/dL (0-200); Creatine Kinase 77 U/L (39-308); Estimated Glomerular Filt Rate > 60; Free T3 2.81 pg/mL (2.18-3.98); Free T4 Free Thyroxine 0.87 ng/dL (0.76-1.46); Glucose 119 mg/dL (70-99); HDL Direct 59 mg/dL (40-60); LDL Cholesterol Calculated 97 mg/dL (<130); Osmolality Calculated 289 mOsm/kg (285-295); Potassium 4.4 mmol/L (3.5-5.1); Prostate Specific Antigen 0.7 ng/mL (< OR = 4.0); Sodium 139 mmol/L (136-145); Thyroid Stimulating Hormone 0.89 uIU/mL (0.36-3.74); Total Protein 7.5 g/dL (6.4-8.2); Triglycerides 83 mg/dL (0-150)
== END 2023-12-27 07:25 | disposition home or self-care (01) ==
LOC: CHSLAB 07:26
PROVIDERS: PCP Internal Medicine; Visit Provider Internal Medicine
DX: E11.9 Type 2 diabetes mellitus without complications (principal); I10 Essential (primary) hypertension; E78.2 Mixed hyperlipidemia; E03.9 Hypothyroidism, unspecified; Z12.5 Encounter for screening for malignant neoplasm of prostate
CPT/HCPCS: 36415; 80053; 80061; 81003; 82043; 82550; 83036; 84153; 84439; 84443; 84481; 85027; G0103

== ENCOUNTER 2024-05-23 14:11 | Outpatient (CLI) | payer MEDICARE, SELFPAY ==
--- NOTE | ~2024-05-23 | XR_ITS ---
XR shoulder LT min 2V Ordering provider: Rohit Estrella MD History: . L Shoulder and Arm Injury FALL THIS MORNING . Comparison: None. FINDINGS: BONES: No acute fracture or dislocation. Osteophyte formation in the acromion with narrowing of the d istance is seen in the humeral head and the acromion. JOINT SPACES: The acromioclavicular joint is normal. The glenohumeral joint is normal. SOFT TISSUES: Normal. IMPRESSION: No acute osseous abnormality left shoulder. Osteophyte formation of the acromion process with narrowing of the distance between the acromion and the humeral head. Impingement on the tendon is possible. Reviewed, dictated and finalized at location A. MACHINE OPERATOR IMPRESSION: No acute osseous abnormality left shoulder. Osteophyte formation of the acromion process with narrowing of the distance bet ween the acromion and the humeral head. Impingement on the tendon is possible.
--- NOTE | ~2024-05-23 | XR_ITS ---
XR humerus LT Ordering provider: Rohit Estrella MD History: . L Shoulder and Arm Injury . Comparison: None. FINDINGS: BONES: No acute fracture or dislocation. JOINT SPACES: Normal. SOFT TISSUES: Normal. IMPRESSION: No acute osseous abnormality left humerus. Reviewed, dictated and finalized at location A. RIOR DESIGN PRINCIPAL
--- OUTSIDE RECORDS SUMMARY | 2024-05-23 16:26 | XMS_ITS | Patient Health Summary ---
Author Organization [facility] Address [address] [place] [address] Care Team Providers Care Research And Development Chemist Name Role Phone Unavailable Primary Care Provider Unavailabl e Note from [facility],non-owned Affiliates and Associated Physician Practices is amultiple site organization consisting of ambulatory clinics and hospital sitesin [place], [place], [place] and [place]. This disclosure is being madepursuant to the Care Everywhere program and may not contain all information available regarding this patient. Last updated 17.[facility] [employer] Allergies * Penicillins(Swelling) Medications * Be aware that medications may not be up to date on this document. Alwaysverify current medications with the patient. * metFORMIN CR 24hr modified (GLUMETZA) 500 MG (MOD) tablet Take 500 mg by mouth twice daily, before 1 meal & at bedtime. * glimepiride (AMARYL) 4 MG tablet Take 4 mg by mouth daily with breakfast * lovastatin (MEVACOR) 10 MG tablet Take 10 mg by mouth at bedtime * lisinopril-hydroCHLOROthiazide (PRINZIDE; ZESTORETIC) 10-12.5 MG tablet Take 1 tablet by mouth once daily * levothyroxine (SYNTHROID) 112 MCG tablet Take 112 mcg by mouth daily before breakfast * HYDROcodone-acetaminophen (NORCO) 10-325 MG tablet(Started 05/13/2018) Take 1 tablet by mouth every 4 hours as needed Active Problems Problem Noted Date Diagnosed Date Right hip pain 12/06/2017 Social History Tobacco Use Types Packs/Day Years Used Date Smoking Tobacco: Never Smokeless Tobacco: Current Chew Alcohol Use Standard Drinks/Week Comments Yes 0 (1 standard drink = 0.6 oz pur e alcohol) rare Sex and Gender Information Value Date Recorded Sex Assigned at Not on file Gender Identity Not on file Sexual Orientation Not on file Last Filed Vital Signs Vital Sign Reading Time Taken Comments Blood Pressure 111/69 01/27/2018 8:01 AM COIL FINISHER Pulse 76 01/27/2018 8:01 AM COIL FINISHER Temperature 36.7 C (98.1 F) 01/27/2018 8:01 AM COIL FINISHER Respiratory Rate 14 01/27/2018 8:01 AM COIL FINISHER Oxygen Saturation 98% 01/27/2018 8:01 AM COIL FINISHER Inhaled Oxygen Concentration - - Weight 90.3 kg (199 lb) 01/25/2018 6:10 AM COIL FINISHER Height 177.8 cm (5' 10 ) 01/25/2018 6:10 AM COIL FINISHER Body Mass Index 28.55 01/25/2018 6:10 AM COIL FINISHER Medical Devices Implanted Type Area Construction Secretary Device Identifier Shelf Expiration Date Model / Serial / Lot Shell Actb 56mm Hip Lmt Hl Ti Por Implanted:Qty: 1 on 01/25/2018 at [facility] Right: Hip [employer] 01/06/2028 [id number] / / [id number] Acetabular Liner 40mm Implanted:Qty: 1 on 01/25/2018 at [facility] Right: Hip [employer] 05/31/2022 [id number] / / [id number] Offset Stem 3 Taper Implanted:Qty: 1 on 01/25/2018 at [facility] Right: Hip [employer] 09/18/2021 [id number] 0 / / [id number] Femoral Head 40mm Implanted:Qty: 1 on 01/25/2018 at [facility] Right: Hip [employer] / / [id number] Explanted Type Area Construction Secretary Device Identifier Shelf Expiration Date Model / Serial / Lot Pin Fx 22.9cm 4mm Stnm Thrd Ss 1 End Explanted:Qty: 2 on 01/25/2018 at [facility] [employer] [id number] / / Liner Actb Rnglc Mxrm 24 36mm E-Poly Hip Implanted:Qty: 1 Explanted:Qty: 1 on 01/25/2018 at [facility] Right: Hip [employer] 12/20/2019 [id number] / / [id number] Procedures * XR HIP RIGHT 2VW OR MORE(Performed 05/13/2018) Performed for Right hip pain * XR HIP RIGHT 2VW OR MORE(Performed 02/21/2018) 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 * GLUCOSE - POINT OF CARE(Performed 01/27/2018) * HGB HCT PANEL(Performed 01/27/2018) * GLUCOSE - POINT OF CARE(Performed 01/26/2018) * GLUCOSE - POINT OF CARE(Performed 01/26/2018) * GLUCOSE - POINT OF CARE(Performed 01/26/2018) * GLUCOSE - POINT OF CARE(Performed 01/26/2018) * HGB HCT PANEL(Performed 01/26/2018) * GLUCOSE - POINT OF CARE(Performed 01/25/2018) * GLUCOSE - POINT OF CARE(Performed 01/25/2018) * GLUCOSE - POINT OF CARE(Performed 01/25/2018) * GLUCOSE - POINT OF CARE(Performed 01/25/2018) * FL KAMILA SURGERY(Performed 01/25/2018) Performed for Right hip pain * NEURAXIAL BLOCK(Performed 01/25/2018) * ARTHROPLASTY TOTAL HIP (ANTERIOR)(Performed 01/25/2018) * GLUCOSE - POINT OF CARE(Performed 01/25/2018) * HEMOGLOBIN A1C(Performed 12/30/2017) Performed for Preop examination * CBC W AUTO DIFFERENTIAL(Performed 12/30/2017) Performed for Preop examination * COMPREHENSIVE METABOLIC PANEL(Performed 12/30/2017) Performed for Preop examination * CULTURE MSSA/MRSA(Performed 12/30/2017) Performed for Preop examination * EKG 12-LEAD(Performed 12/30/2017) Performed for Preop examination * XR HIP RIGHT 2VW OR MORE(Performed 12/06/2017) Performed for Right hip pain Results * XR HIP RIGHT 2VW OR MORE (05/13/2018 9:26 AM COIL FINISHER) Only the most recent of3 resultswithin the time period is included. Anatomical Region Laterality Modality Pelvis, Lower Extremity Computed Radiography Narrative 05/13/2018 11:10 AM COIL FINISHER Mihaela Angel 05/13/2018 11:10 AM Please see progress notes for xray results Vignesh Gupta IV, MD DIAGNOSTIC IMAGING O RDERABLES * GLUCOSE - POINT OF CARE (01/27/2018 8:14 AM COIL FINISHER) Only the most recent of10 resultswithin the time period is included. Glucose WB/POC 101 70 - 106 mg/dL 01/27/2018 11:52 AM COIL FINISHER [facility] Specimen Type CAPILLARY BLOOD 01/27/2018 11:52 AM COIL FINISHER [facility] Blood BLOOD SPECIMEN / Unknown 01/27/2018 8:14 AM COIL FINISHER 01/27/2018 11:52 AM COIL FINISHER Vignesh Gupta IV, MD LAB - POINT OF CARE ORDERABLES Performing Organization Address [facility] de Phone Number [facility] [address] [place] [id number] * HGB HCT PANEL (01/27/2018 3:11 AM COIL FINISHER) Only the most recent of2 resultswithin the time period is included. Hemoglobin 12.2 12.0 - 17.6 gm/dL 01/27/2018 3:47 AM COIL FINISHER [facility] Hematocrit 36.5 35.2 - 51.7 % 01/27/2018 3:47 AM [facility] Blood BLOOD SPECIMEN / Unknown Venipuncture / Unknown 01/27/2018 3:11 AM COIL FINISHER 01/27/2018 3:37 AM COIL FINISHER Vignesh Gupta IV, MD LAB - HEMATOLOGY ORD ERABLES Performing Organization Address [facility] de Phone Number [facility] [address] [place] [id number] * FL KAMILA SURGERY (01/25/2018 9:30 AM COIL FINISHER) Anatomical Region Laterality Modality Radiographic Mirella ging 01/25/2018 9:42 AM COIL FINISHER Narrative 01/25/2018 9:34 AM COIL FINISHER FLUOROSCOPY: Less than 1 hour of fluoroscopy was utilized during a right anterior hip surgery. No radiologist was present. Please refer to surgical report for details. 24 seconds fluoroscopy was provided Reading Radiologist: Nena Colvin MD on 01/25/2018 at 9:42 AM Procedure Note Baranski, Nena J, MD - 01/25/2018 FLUOROSCOPY: Less than 1 hour of fluoroscopy was utilized during a right anterior hip surgery. No radiologist was present. Please refer to surgical report for details. 24 seconds fluoroscopy was provided Reading Radiologist: Nena Colvin MD on 01/25/2018 at 9:42 AM Vignesh Gupta IV, MD FLUOROSCOPY ORDERABL ES * CULTURE MSSA/MRSA (12/30/2017 9:24 AM CDT) Pathologist [facility] Culture Negative for Staphylococcus aureus (MRSA/MSSA) DAVI 01/02/2018 10:37 AM CDT [facility] MICROBIOLOGY Microbiology SPECIMEN FROM NASAL FOSSAE / Unknown Collection / Unknown 12/30/2017 9:24 AM CDT 12/30/2017 9:35 AM CDT Vignesh Gupta IV, MD LAB - MICROBIOLOGY O RDERABLES Performing Organization Address City/[facility]/ZIP Co de Phone Number [facility] MICROBIOLOGY [address] [phone] * (ABNORMAL) HEMOGLOBIN A1C (12/30/2017 9:24 AM CDT) Pathologist [facility] Hemoglobin A1c 7.0(H) 4.2 - 6.3 % 12/30/2017 10:44 AM CDT [facility] Estimated Average Glucose 154 mg/dL 12/30/2017 10:44 AM CDT [facility] Blood BLOOD SPECIMEN / Unknown Venipuncture / Unknown 12/30/2017 9:24 AM CDT 12/30/2017 9:34 AM CDT Vignesh Gupta IV, MD LAB - CHEMISTRY SYLVIA BELLE Performing Organization Address City/[facility]/ZIP Co de Phone Number [facility] [address] [place] [address] * CBC W AUTO DIFFERENTIAL (12/30/2017 9:24 AM CDT) Pathologist [facility] WBC 5.2 4.4 - 10.7 x10E9/L 12/30/2017 9:38 AM CDT [facility] WBC Corrected x10E9/L 12/30/2017 9:38 AM CDT [facility] RBC 5.14 3.80 - 5.40 x10E12/L 12/30/2017 9:38 AM CDT [facility] Hemoglobin 14.7 12.0 - 17.6 gm/dL 12/30/2017 9:38 AM CDT [facility] Hematocrit 43.3 35.2 - 51.7 % 12/30/2017 9:38 AM CDT [facility] MCV 84.2 80.7 - 98.3 fl 12/30/2017 9:38 AM CDT [facility] MCH 28.6 26.7 - 34.0 pg 12/30/2017 9:38 AM CDT [facility] MCHC 33.9 30.8 - 35.9 gm/dL 12/30/2017 9:38 AM CDT [facility] Platelet Count 157 153 - 416 x10E9/L 12/30/2017 9:38 AM CDT [facility] RDW-CV 12.7 12.1 - 14.9 % 12/30/2017 9:38 AM CDT [facility] MPV 10.7 9.4 - 12.9 fl 12/30/2017 9:38 AM CDT [facility] Neutrophils % 60.3 44.0 - 73.0 % 12/30/2017 9:38 AM CDT [facility] Lymphocytes % 30.3 20.0 - 43.0 % 12/30/2017 9:38 AM CDT [facility] Monocytes % 6.9 5.0 - 13.0 % 12/30/2017 9:38 AM CDT [facility] Eosinophils % 1.5 0.0 - 6.0 % 12/30/2017 9:38 AM CDT [facility] Basophils % 0.8 0.0 - 2.0 % 12/30/2017 9:38 AM CDT [facility] Immature Granulocytes 0.2 0 - 1 % 12/30/2017 9:38 AM CDT [facility] Neutrophil Absolute 3.15 2.01 - 7.14 x10E9/L 12/30/2017 9:38 AM CDT [facility] Lymphocytes Absolute 1.58 1.07 - 3.94 x10E9/L 12/30/2017 9:38 AM CDT [facility] Monocytes Absolute 0.36 0.26 - 1.07 x10E9/L 12/30/2017 9:38 AM CDT [facility] Eosinophils Absolute 0.08 0 - 0.47 x10E9/L 12/30/2017 9:38 AM CDT [facility] Basophils Absolute 0.04 0 - 0.08 x10E9/L 12/30/2017 9:38 AM CDT [facility] Immature Granulocytes Absolute 0.01 0.00 - 0.06 x10E9/L 12/30/2017 9:38 AM CDT [facility] nRBC Auto 0 /100 WBC 12/30/2017 9:38 AM CDT [facility] Blood BLOOD SPECIMEN / Unknown Venipuncture / Unknown 12/30/2017 9:24 AM CDT 12/30/2017 9:34 AM CDT Vignesh Gupta IV, MD LAB - HEMATOLOGY ORD ERABLES [facility] [address] [place] [address] * (ABNORMAL) COMPREHENSIVE METABOLIC PANEL (12/30/2017 9:24 AM CDT) Glucose 147(H) 74 - 106 mg/dL 12/30/2017 9:59 AM CDT [facility] Sodium 136 136 - 145 mmol/L 12/30/2017 9:59 AM CDT [facility] Potassium 3.6 3.5 - 5.1 mmol/L 12/30/2017 9:59 AM CDT [facility] Chloride 100 98 - 107 mmol/L 12/30/2017 9:59 AM CDT [facility] CO2 31 22 - 31 mmol/L 12/30/2017 9:59 AM CDT [facility] Calcium 8.8 8.5 - 10.1 mg/dL 12/30/2017 9:59 AM CDT [facility] Anion Gap 5(L) 8 - 16 mmol/L 12/30/2017 9:59 AM CDT [facility] BUN 14 7 - 21 mg/dL 12/30/2017 9:59 AM CDT [facility] Creatinine 1.10 0.50 - 1.30 mg/dL 12/30/2017 9:59 AM CDT [facility] Alkaline Phosphatase 50 38 - 126 U/L 12/30/2017 9:59 AM CDT [facility] ALT 49 13 - 61 U/L 12/30/2017 9:59 AM CDT [facility] AST 23 5 - 40 U/L 12/30/2017 9:59 AM CDT [facility] Protein Total 7.3 6.4 - 8.2 gm/dL 12/30/2017 9:59 AM CDT [facility] Albumin 3.8 3.4 - 5.0 gm/dL 12/30/2017 9:59 AM CDT [facility] Bilirubin Total 1.1(H) 0.2 - 1.0 mg/dL 12/30/2017 9:59 AM CDT [facility] eGFR by MDRD >60 >60 mL/min/1.7 3m2 12/30/2017 9:59 AM CDT [facility] eGFR by MDRD >60 >60 mL/min/1.7 3m2 12/30/2017 9:59 AM CDT [facility] Blood BLOOD SPECIMEN / Unknown Venipuncture / Unknown 12/30/2017 9:24 AM CDT 12/30/2017 9:34 AM CDT Vignesh Gupta IV, MD LAB - CHEMISTRY SYLVIA BELLE [facility] [address] [place] [address] * EKG 12-LEAD (12/30/2017 9:11 AM CDT) Ventricular Rate 65 BPM [facility] Atrial Rate 65 BPM [facility] P-R Interval 154 ms [facility] QRS Duration ms 86 ms [facility] Q-T Interval ms 402 ms [facility] QTC Calculation (Bezet) 418 ms [facility] Calculated P [place] 32 degrees [facility] Calculated R [place] -16 degrees [facility] Calculated T [place] 33 degrees [facility] Interpretation EKG Sinus rhythm with occasional Premature ventricular complexes Otherwise normal ECG No previous ECGs available Confirmed by CHARISSA LAZARO MD ([id number]) on 12/30/2017 4:07:15 PM [facility] 12/30/2017 9:11 AM CDT 12/30/2017 4:07 PM CDT Vignesh Gupta IV, MD ECG ORDERABLES [facility]
--- OUTSIDE RECORDS SUMMARY | 2024-05-23 16:26 | XMS_ITS | Clinical Summary ---
Author Organization [facility] Address [address] [place] [id number] Care Team Providers Care Courtesy Car Driver Name Role Phone Unavailable Primary Care Provider Unavailabl e Social History Tobacco Use Types Packs/Day Years Used Date Smoking Tobacco: Never Assessed Sex and Gender Information Value Date Recorded Sex Assigned at Not on file Legal Sex Male 9:53 AM CDT Gender Identity Not on file Sexual Orientation Not on file Plan of Treatment Health Maintenance Due Date Last Done Comments Colorectal Cancer Screening Colonoscopy (10 Years) 1955 Hepatitis C 1974 DTaP, Tdap and Td Vaccines ( 1 - Tdap) 08/09/1975 Zoster Vaccines (1 of 2) 2006 Annual Medicare Wellness Visit 2021 Pneumococcal Vaccine: 65+ Ye ars (1 of 1 - PCV) 2021 COVID-19 Vaccine ( - 2023-2 5 season) 2023 Influenza Adult (#1) 2023 RSV Immunization or 60+ Years (1 - 1-dose 75+ series) 08/09/2031 Meningococcal B Vaccine Aged Out No l onger eligible based on patient's age to complete this topic Meningococcal Vaccine Aged Out No fawn martha eligible based on patient's age to complete this topic RSV Immunizations Under 20 Months Aged Out No longer eligible based on patient's age to complete this topic Insurance [facility]IC[facility]
--- OUTSIDE RECORDS SUMMARY | 2024-05-23 16:26 | XMS_ITS | Referral Summary ---
Author Organization [facility] Address [address] [place] [address] Care Team Providers Care Distribution Designer Name Role Phone Unavailable Primary Care Provider Unavailabl e Source Comments [facility],non-owned Affiliates and Associated Physician Practices is amultiple site organization consisting of ambulatory clinics and hospital sitesin [place], [place], [place] and [place]. This disclosure is being madepursuant to the Care Everywhere program and may not contain all information available regarding this patient. Last updated 17.[facility] [employer] Allergies Active Allergy Reactions Criticality Noted Date Comments Penicillins Swelling 12/30/2017 Medications * Be aware that medications may not be up to date on this document. Alwaysverify current medications with the patient. Medication Sig Dispensed Refills Start Date End Date Status metFORMIN CR 24hr modified (GLUMETZA) 500 MG (MOD) tablet Take 500 mg by mouth twice daily, before 1 meal & at bedtime. Active glimepiride (AMARYL) 4 MG tablet Take 4 mg by mouth daily with breakfast Active lovastatin (MEVACOR) 10 MG tablet Take 10 mg by mouth at bedtime Active lisinopril-hydroCHLO ROthiazide (PRINZIDE; ZESTORETIC) 10-12.5 MG tablet Take 1 tablet by mouth once daily Active levothyroxine (SYNTHROID) 112 MCG tablet Take 112 mcg by mouth daily before breakfast Active HYDROcodone-acetamin ophen (NORCO) 10-325 MG tablet Take 1 tablet by mouth every 4 hours as needed 60 tablet 05/13/2018 Active Active Problems Problem Noted Date Diagnosed Date [...] Comments Blood Pressure 111/69 01/27/2018 8:01 AM PATTERN HANGER Pulse 76 01/27/2018 8:01 AM PATTERN HANGER Temperature 36.7 C (98.1 F) 01/27/2018 8:01 AM PATTERN HANGER Respiratory Rate 14 01/27/2018 8:01 AM PATTERN HANGER Oxygen Saturation 98% 01/27/2018 8:01 AM PATTERN HANGER Inhaled Oxygen Concentration - - Weight 90.3 kg (199 lb) 01/25/2018 6:10 AM PATTERN HANGER Height 177.8 cm (5' 10 ) 01/25/2018 6:10 AM PATTERN HANGER Body Mass Index 28.55 01/25/2018 6:10 AM PATTERN HANGER Functional Status Functional Status Response Date of Assess ment Is person deaf or have serious hearing difficult y? No 01/25/2018 Is person blind or have serious difficulty seein g? No 01/25/2018 Does person have serious dif ficulty walking/climbing stairs? No 01/25/2018 Does person have difficulty dressing/bathing? No 01/25/2018 Does person have difficulty doing errands alone? No 01/25/2018 Cognitive Status Response Date of Assessm ent Does person have difficulty concentrating/remembering/making decisions? No 01/25/2018 Plan of Treatment Not on file Medical Devices Implanted Type Area Manager Skilled Device Identifier Shelf Expiration Date Model / Serial / Lot Shell Actb 56mm Hip Lmt Hl Ti Por Implanted:Qty: 1 on 01/25/2018 at [facility] Right: Hip [employer] 01/06/2028 [id number] / / [id number] Acetabular Liner 40mm Implanted:Qty: 1 on 01/25/2018 at [facility] Right: Hip [employer] 05/31/2022 [id number] / / [id number] Offset Stem 3 Taper Implanted:Qty: 1 on 01/25/2018 at [facility] Right: Hip [employer] 09/18/2021 [id number] / / [id number] Femoral Head 40mm Implanted:Qty: 1 on 01/25/2018 at [facility] Right: Hip [employer] / / [id number] Explanted Type Area Manager Skilled Device Identifier Shelf Expiration Date Model / Serial / Lot Pin Fx 22.9cm 4mm Stnm Thrd Ss 1 End Explanted:Qty: 2 on 01/25/2018 at [facility] [employer] [id number] / / Liner Actb Rnglc Mxrm 24 36mm E-Poly Hip Implanted:Qty: 1 Explanted:Qty: 1 on 01/25/2018 at [facility] Right: Hip [employer] 12/20/2019 [id number] / / [id number] Procedures Procedure Name Priority Date/Time Associated Diagnosis Comments GLUCOSE - POINT OF CARE Routine 01/27/2018 8:14 AM PATTERN HANGER from Last 3 Months or Most Recently Relevant to Health Maintenance Results * GLUCOSE - POINT OF CARE (01/27/2018 8:14 AM PATTERN HANGER) [facility] Glucose WB/POC 101 70 - 106 mg/dL 01/27/2018 11:52 AM PATTERN HANGER [facility] Specimen Type CAPILLARY BLOOD 01/27/2018 11:52 AM PATTERN HANGER [facility] Blood BLOOD SPECIMEN / Unknown 01/27/2018 8:14 AM PATTERN HANGER 01/27/2018 11:52 AM PATTERN HANGER Vignesh Gupta IV, MD LAB - POINT OF CARE ORDERABLES [facility] [address] [place] [address] from Last 3 Months or Most Recently Relevant to Health Maintenance Advance Directives * Full Code (Latest Code Status on File) Date Activated Date Inactivated Comments 01/25/2018 12:01 PM 01/27/2018 1:17 PM
--- OUTSIDE RECORDS SUMMARY | 2024-05-23 16:26 | XMS_ITS | Clinical Summary ---
Author Organization [facility] Address [address] [place] [address] Care Team Providers Care Mems Process Engineer Name Role Phone Unavailable Primary Care Provider Unavailabl e Source Comments [facility],non-owned Affiliates and Associated Physician Practices is amultiple site organization consisting of ambulatory clinics and hospital sitesin [place], [place], [place] and [place]. This disclosure is being madepursuant to the Care Everywhere program and may not contain all information available regarding this patient. Last updated 17.[facility] Donde Allergies Active Allergy Reactions Criticality Noted Date [...] Comments Blood Pressure 111/69 01/27/2018 8:01 AM SUPERVISOR WARPING DEPARTMENT Pulse 76 01/27/2018 8:01 AM SUPERVISOR WARPING DEPARTMENT Temperature 36.7 C (98.1 F) 01/27/2018 8:01 AM SUPERVISOR WARPING DEPARTMENT Respiratory Rate 14 01/27/2018 8:01 AM SUPERVISOR WARPING DEPARTMENT Oxygen Saturation 98% 01/27/2018 8:01 AM SUPERVISOR WARPING DEPARTMENT Inhaled Oxygen Concentration - - Weight 90.3 kg (199 lb) 01/25/2018 6:10 AM SUPERVISOR WARPING DEPARTMENT Height 177.8 cm (5' 10 ) 01/25/2018 6:10 AM SUPERVISOR WARPING DEPARTMENT Body Mass Index 28.55 01/25/2018 6:10 AM SUPERVISOR WARPING DEPARTMENT Plan of Treatment Health Maintenance Due Date Last Done Comments COLOGUARD (AGES 45-75) - COLON CA SCREENING 1956 COLON MONITORING 1956 COLONOSCOPY - COLON CA SCREENING 1956 CT COLONOGRAPHY - COLON CA SCREENING 1956 Colorectal Cancer Screening 1956 FIT - COLON CA SCREENING 1956 FLEX SIG - COLON CA SCREENING 1956 HEPATITIS C SCREENING 08/04/1974 DTAP/TDAP/TD VACCINES (1 - Tdap) 08/09/1975 PNEUMOCOCCAL VACCINE 50+ (1 of 1 - PCV) 2006 ZOSTER VACCINE (1 of 2) 2006 SCREENING FOR DIABETES 01/27/2021 8, 01/26/2018, 01/26/2018, Additional history exists COVID-19 VACCINE ( - 2023- season) 2023 INFLUENZA VACCINE (#1) 2023 DEPRESSION SCREENING 03/22/2024 Respiratory Syncytial Virus (RSV) Vaccine Pt: or over 60 yrs (1 - 1-dose 75+ series) 08/09/2031 HEPATITIS B VACCINE Aged Out No longe r eligible based on patient's age to complete this topic HIB VACCINE Aged Out No longer eligi ble based on patient's age to complete this topic HPV VACCINE Aged Out No longer eligi ble based on patient's age to complete this topic MENINGOCOCCAL (Group B) VACCINE Aged Out No longer eligible based on patient's age to complete this topic MENINGOCOCCAL VACCINE Aged Out No fawn martha eligible based on patient's age to complete this topic Medical Devices Implanted Type Area Shoe Stitcher Device Identifier Shelf Expiration Date Model / Serial / Lot Shell Actb 56mm Hip Lmt Hl Ti Por Implanted:Qty: 1 on 01/25/2018 at [facility] Right: Hip [employer] 01/06/2028 [id number] / / [id number] Acetabular Liner 40mm Implanted:Qty: 1 on 01/25/2018 at [facility] Right: Hip [employer] 05/31/2022 [id number] / / [id number] Offset Stem 3 Taper Implanted:Qty: 1 on 01/25/2018 at [facility] Right: Hip [employer] 09/18/2021 01.93204.03 0 / / [id number] Femoral Head 40mm Implanted:Qty: 1 on 01/25/2018 at [facility] Right: Hip [employer] / / [id number] Explanted Type Area Shoe Stitcher Device Identifier Shelf Expiration Date Model / Serial / Lot Pin Fx 22.9cm 4mm Stnm Thrd Ss 1 End Explanted:Qty: 2 on 01/25/2018 at [facility] [employer] [id number] / / Liner Actb Rnglc Mxrm 24 36mm E-Poly Hip Implanted:Qty: 1 Explanted:Qty: 1 on 01/25/2018 at [facility] Right: Hip [employer] 12/20/2019 [id number] / / [id number] Procedures Procedure Name Priority Date/Time Associated Diagnosis Comments GLUCOSE - POINT OF CARE Routine 01/27/2018 8:14 AM SUPERVISOR WARPING DEPARTMENT from Last 3 Months or Most Recently Relevant to Health Maintenance Results * GLUCOSE - POINT OF CARE (01/27/2018 8:14 AM SUPERVISOR WARPING DEPARTMENT) [facility] Glucose WB/POC 101 70 - 106 mg/dL 01/27/2018 11:52 AM SUPERVISOR WARPING DEPARTMENT [facility] Specimen Type CAPILLARY BLOOD 01/27/2018 11:52 AM SUPERVISOR WARPING DEPARTMENT [facility] Blood BLOOD SPECIMEN / Unknown 01/27/2018 8:14 AM SUPERVISOR WARPING DEPARTMENT 01/27/2018 11:52 AM SUPERVISOR WARPING DEPARTMENT Vignesh Gupta IV, MD LAB - POINT OF CARE ORDERABLES [facility] [address] [place] [address] from Last 3 Months or Most Recently Relevant to Health Maintenance Advance Directives * Full Code (Latest Code Status on File) Date Activated Date Inactivated Comments 01/25/2018 12:01 PM 01/27/2018 1:17 PM
--- OUTSIDE RECORDS SUMMARY | 2024-05-23 16:26 | XMS_ITS | Encounter Summary ---
Author Organization [facility] Health Address [address] [place] [address] Care Team Providers Care Battery Wrecker Operator Name Role Phone Unavailable Primary Care Provider Unavailabl e Encounter Details Date Type Department Care Team (Late st Contact Info) Description 12/06/2017 [facility] Outpatient Visit [facility] [address] [place] [address] Rohit Estrella MD [address] [place] [address] Social History Tobacco Use Types Packs/Day Years Used Date Smoking Tobacco: Never Assessed Sex and Gender Information Value Date Recorded Sex Assigned at Not on file Gender Identity Not on file Sexual Orientation Not on file documented as of this encounter Plan of Treatment Not on file documented as of this encounter Visit Diagnoses Not on filedocumented in this encounter
== END 2024-05-23 14:12 | disposition home or self-care (01) ==
PROVIDERS: PCP Internal Medicine; Visit Provider Internal Medicine
DX: S49.92XA Unspecified injury of left shoulder and upper arm, initial encounter (principal)
CPT/HCPCS: 73030; 73060

== ENCOUNTER 2024-05-27 08:05 | Outpatient (CLI) | payer MEDICARE, SELFPAY ==
--- NOTE | ~2024-05-27 | MR_ITS ---
EXAMINATION: MR shoulder LT wo con DATE: 05/27/2024 09:11 INDICATION: Left shoulder pain. Fall. TECHNIQUE: Magnetic resonance imaging (MRI) of the left shoulder was performed without intravenous co ntrast. Sequences included axial PD-weighted FS FSE, coronal oblique PD-weighted FS FSE and T2-weight ed FS FSE, and sagittal oblique T2-weighted FS FSE and T1-weighted FSE. COMPARISON: Left shoulder radiographs 05/23/2024 FINDINGS: Coracoacromial arch: The acromion undersurface is flat in morphology (type I). Subacromial spurring is noted. There is sev ere acromioclavicular joint osteoarthritis. There is moderate subacromial/subdeltoid bursitis. Rotator cuff: There is a full-thickness tear of supraspinatus and infraspinatus tendons measuring greater than 4.5 cm anterior to posterior by 5.1 cm proximal to distal. Teres minor tendon is normal. There is severe subscapularis tendinopathy. There is edema in infraspinatus muscle belly. There is mild fatty atrophy of supraspinous, infraspinatus, and subscapularis muscle bellies. Biceps tendon and glenoid labrum: Biceps tendon is in bicipital groove. There is mild intra-articular biceps tendinopathy. There is deg enerative tearing of the glenoid labrum (SLAP tear). Fluid: There is a moderate-sized glenohumeral joint effusion. Bones/cartilage: Humeral head cartilage is normal. Glenoid cartilage is normal. IMPRESSION: 1. Massive full-thickness rotator cuff tear. 2. Severe acromioclavicular joint osteoarthritis. 3. Mild intra-articular biceps tendinopathy. 4. Moderate-sized glenohumeral joint effusion and moderate subacromial/subdeltoid bursitis. 5. SLAP tear. Reviewed, dictated and finalized at location A. [facility] IMPRESSION: 1. Massive full-thickness rotator cuff tear. 2. Severe acromioclavicular joint osteoarthritis. 3. Mild intra-articular biceps tendinopathy. 4. Moderate-sized glenohumeral joint effusion and moderate subacromial/subdelto id bursitis. 5. SLAP tear.
--- OUTSIDE RECORDS SUMMARY | 2024-05-27 08:07 | XMS_ITS | Patient Health Summary ---
Author Organization [facility] Address [address] [place] [address] Care Team Providers Care Chinese Language Professor Name Role Phone Unavailable Primary Care Provider Unavailabl e Note from [facility],non-owned Affiliates and Associated Physician Practices is amultiple site organization consisting of ambulatory clinics and hospital sitesin [place], [place], [place] and [place]. This disclosure is being madepursuant to the Care Everywhere program and may not contain all information available regarding this patient. Last updated 17.[facility] [employer] Allergies * Penicillins(Swelling) Medications * Be aware [...] Comments Blood Pressure 111/69 01/27/2018 8:01 AM CV RN Pulse 76 01/27/2018 8:01 AM CV RN Temperature 36.7 C (98.1 F) 01/27/2018 8:01 AM CV RN Respiratory Rate 14 01/27/2018 8:01 AM CV RN Oxygen Saturation 98% 01/27/2018 8:01 AM CV RN Inhaled Oxygen Concentration - - Weight 90.3 kg (199 lb) 01/25/2018 6:10 AM CV RN Height 177.8 cm (5' 10 ) 01/25/2018 6:10 AM CV RN Body Mass Index 28.55 01/25/2018 6:10 AM CV RN Medical Devices Implanted Type Area Venue Attendant Device Identifier Shelf Expiration Date Model / Serial / Lot Shell Actb 56mm Hip Lmt Hl Ti Por Implanted:Qty: 1 on 01/25/2018 at [facility] Right: Hip [employer] 01/06/2028 [id number] / / [id number] Acetabular Liner 40mm Implanted:Qty: 1 on 01/25/2018 at [facility] Right: Hip [employer] 05/31/2022 [id number] / / [id number] Offset Stem 3 Taper Implanted:Qty: 1 on 01/25/2018 at [facility] Right: Hip [employer] 09/18/2021 01.66477.03 0 / / [id number] Femoral Head 40mm Implanted:Qty: 1 on 01/25/2018 at [facility] Right: Hip [employer] / / [id number] Explanted Type Area Venue Attendant Device Identifier Shelf Expiration Date Model / Serial / Lot Pin Fx 22.9cm 4mm Stnm Thrd Ss 1 End Explanted:Qty: 2 on 01/25/2018 at [facility] [employer] [id number] / / Liner Actb Rnglc Mxrm 24 36mm E-Poly Hip Implanted:Qty: 1 Explanted:Qty: 1 on 01/25/2018 at [facility] Right: Hip [employer] 12/20/2019 [id number] / / [id number] Procedures * XR HIP RIGHT 2VW OR [...] RIGHT 2VW OR MORE (05/13/2018 9:26 AM CV RN) Only the most recent of3 resultswithin the time period is included. Anatomical Region Laterality Modality Pelvis, Lower Extremity Computed Radiography Narrative 05/13/2018 11:10 AM CV RN Mihaela Angel 05/13/2018 11:10 AM Please see progress notes for xray results Vignesh Gupta IV, MD DIAGNOSTIC IMAGING O RDERABLES * GLUCOSE - POINT OF CARE (01/27/2018 8:14 AM CV RN) Only the most recent of10 resultswithin the time period is included. Glucose WB/POC 101 70 - 106 mg/dL 01/27/2018 11:52 AM CV RN [facility] Specimen Type CAPILLARY BLOOD 01/27/2018 11:52 AM CV RN [facility] Blood BLOOD SPECIMEN / Unknown 01/27/2018 8:14 AM CV RN 01/27/2018 11:52 AM CV RN Vignesh Gupta IV, MD LAB - POINT OF CARE ORDERABLES Performing Organization Address [facility] de Phone Number [facility] [address] [place] [address] * HGB HCT PANEL (01/27/2018 3:11 AM CV RN) Only the most recent of2 resultswithin the time period is included. Hemoglobin 12.2 12.0 - 17.6 gm/dL 01/27/2018 3:47 AM CV RN [facility] Hematocrit 36.5 35.2 - 51.7 % 01/27/2018 3:47 AM [facility] Blood BLOOD SPECIMEN / Unknown Venipuncture / Unknown 01/27/2018 3:11 AM CV RN 01/27/2018 3:37 AM CV RN Vignesh Gupta IV, MD LAB - HEMATOLOGY ORD ERABLES Performing Organization Address [facility] de Phone Number [facility] [address] [place] [address] * FL KAMILA SURGERY (01/25/2018 9:30 AM CV RN) Anatomical Region Laterality Modality Radiographic Mirella ging 01/25/2018 9:42 AM CV RN Narrative 01/25/2018 9:34 AM CV RN FLUOROSCOPY: Less than 1 hour of fluoroscopy [...] CULTURE MSSA/MRSA (12/30/2017 9:24 AM CDT) Pathologist [facility] Culture Negative for Staphylococcus aureus (MRSA/MSSA) DAVI 01/02/2018 10:[address] [facility] MICROBIOLOGY Microbiology SPECIMEN FROM NASAL FOSSAE / Unknown Collection / Unknown 12/30/2017 9:24 AM CDT 12/30/2017 9:35 AM CDT Vignesh Gupta IV, MD LAB - MICROBIOLOGY O RDERABLES Performing Organization Address City/[facility]/ZIP Co de Phone Number [facility] MICROBIOLOGY [address] [phone] * (ABNORMAL) HEMOGLOBIN A1C (12/30/2017 9:24 AM CDT) Pathologist [facility] Hemoglobin A1c 7.0(H) 4.2 - 6.3 % 12/30/2017 10:44 AM CDT [facility] Estimated Average Glucose 154 mg/dL 12/30/2017 10:44 AM CDT [facility] Blood BLOOD SPECIMEN / Unknown Venipuncture / Unknown 12/30/2017 9:24 AM CDT 12/30/2017 9:34 AM CDT Vignesh Gupta IV, MD LAB - CHEMISTRY SYLVIA BELLE Performing Organization Address City/[facility]/ZIP Co de Phone Number [facility] [address] [place] [address] * CBC W AUTO DIFFERENTIAL (12/30/2017 9:24 AM CDT) Pathologist [facility] WBC 5.2 4.4 - 10.7 x10E9/L 12/30/2017 [...] - 1.07 x10E9/L 12/30/2017 9:38 AM CDT [facility] Eosinophils Absolute 0.08 0 - 0.47 x10E9/L 12/30/2017 9:38 AM CDT [facility] Basophils Absolute 0.04 0 - 0.08 x10E9/L 12/30/2017 9:38 AM CDT [facility] Immature Granulocytes Absolute 0.01 0.00 - 0.06 x10E9/L 12/30/2017 9:38 AM CDT [facility] nRBC Auto 0 /100 WBC 12/30/2017 9:38 AM CDT [facility] Blood BLOOD SPECIMEN / Unknown Venipuncture / Unknown 12/30/2017 9:24 AM CDT 12/30/2017 9:34 AM CDT Vignesh Gupta IV, MD LAB - HEMATOLOGY ORD ERABLES [facility] [address] [place] [address] * (ABNORMAL) COMPREHENSIVE METABOLIC PANEL (12/30/2017 9:24 AM CDT) Glucose 147(H) 74 - 106 mg/dL 12/30/2017 9:59 AM CDT [facility] Sodium 136 136 - 145 mmol/L 12/30/2017 9:59 AM CDT [facility] Potassium 3.6 3.5 - 5.1 mmol/L 12/30/2017 9:59 AM CDT [facility] Chloride 100 98 - 107 mmol/L 12/30/2017 9:59 AM CDT [facility] CO2 31 22 - 31 mmol/L 12/30/2017 9:59 AM CDT [facility] Calcium 8.8 8.5 - 10.1 mg/dL 12/30/2017 9:59 AM CDT [facility] Anion Gap 5(L) 8 - 16 mmol/L 12/30/2017 9:59 AM CDT [facility] BUN 14 7 - 21 mg/dL 12/30/2017 9:59 AM CDT [facility] Creatinine 1.10 0.50 - 1.30 mg/dL [...] LAB - CHEMISTRY SYLVIA BELLE [facility] [address] [place] [address] * EKG 12-LEAD (12/30/2017 9:11 AM CDT) Ventricular Rate 65 BPM [facility] Atrial Rate 65 BPM [facility] P-R Interval 154 ms [facility] QRS Duration ms 86 ms [facility] Q-T Interval ms 402 ms [facility] QTC Calculation (Bezet) 418 ms [facility] Calculated P Wisner 32 degrees [facility] Calculated R Wisner -16 degrees [facility] Calculated T Wisner 33 degrees [facility] Interpretation EKG Sinus rhythm with occasional Premature ventricular complexes Otherwise normal ECG No previous ECGs available Confirmed by CHARISSA LAZARO MD ([id number]) on 12/30/2017 4:07:15 PM [facility] 12/30/2017 9:11 AM CDT 12/30/2017 4:07 PM CDT Vignesh Gupta IV, MD ECG ORDERABLES [facility]
--- OUTSIDE RECORDS SUMMARY | 2024-05-27 08:07 | XMS_ITS | Clinical Summary ---
Author Organization [facility] Address [address] [place] [id number] Care Team Providers Care Civil Litigation Attorney Name Role Phone Unavailable Primary Care Provider [...] to complete this topic Insurance MED RE[facility] MEDICARE
--- OUTSIDE RECORDS SUMMARY | 2024-05-27 08:07 | XMS_ITS | Encounter Summary ---
Author Organization [facility] Health Address [address] [place] [address] Care Team Providers Care Youth Care Specialist Name Role Phone Unavailable Primary Care Provider Unavailabl e Encounter Details Date Type Department Care Team (Late st Contact Info) Description 12/06/2017 [facility] Outpatient Visit [facility] [address] [place] [address] Rohit Estrella MD [address] [place] [address] Social History Tobacco Use Types [...]
--- OUTSIDE RECORDS SUMMARY | 2024-05-27 08:07 | XMS_ITS | Clinical Summary ---
Author Organization [facility] Address [address] [place] [address] Care Team Providers Care Thermoforming Operator Name Role Phone Unavailable Primary Care Provider Unavailabl e Source Comments [facility],non-owned Affiliates and Associated Physician Practices is amultiple site organization consisting of ambulatory clinics and hospital sitesin [place], [place], [place] and [place]. This disclosure is being madepursuant to the Care Everywhere program and may not contain all information available regarding this patient. Last updated 17.[facility] [email or web address] Allergies Active Allergy Reactions Criticality Noted Date [...] Comments Blood Pressure 111/69 01/27/2018 8:01 AM PROMOTION OFFICER Pulse 76 01/27/2018 8:01 AM PROMOTION OFFICER Temperature 36.7 C (98.1 F) 01/27/2018 8:01 AM PROMOTION OFFICER Respiratory Rate 14 01/27/2018 8:01 AM PROMOTION OFFICER Oxygen Saturation 98% 01/27/2018 8:01 AM PROMOTION OFFICER Inhaled Oxygen Concentration - - Weight 90.3 kg (199 lb) 01/25/2018 6:10 AM PROMOTION OFFICER Height 177.8 cm (5' 10 ) 01/25/2018 6:10 AM PROMOTION OFFICER Body Mass Index 28.55 01/25/2018 6:10 AM PROMOTION OFFICER Plan of Treatment Health Maintenance Due Date [...] this topic Medical Devices Implanted Type Area Corporate General Manager Device Identifier Shelf Expiration Date Model / Serial / Lot Shell Actb 56mm Hip Lmt Hl Ti Por Implanted:Qty: 1 on 01/25/2018 at [facility] Right: Hip [employer] 01/06/2028 [id number] / / [id number] Acetabular Liner 40mm Implanted:Qty: 1 on 01/25/2018 at [facility] Right: Hip [employer] 05/31/2022 [id number] / / [id number] Offset Stem 3 Taper Implanted:Qty: 1 on 01/25/2018 at [facility] Right: Hip [employer] 09/18/2021 01.38042.03 0 / / [id number] Femoral Head 40mm Implanted:Qty: 1 on 01/25/2018 at [facility] Right: Hip [employer] / / [id number] Explanted Type Area Corporate General Manager Device Identifier Shelf Expiration Date Model / Serial / Lot Pin Fx 22.9cm 4mm Stnm Thrd Ss 1 End Explanted:Qty: 2 on 01/25/2018 at [facility] [employer] [id number] / / Liner Actb Rnglc Mxrm 24 36mm E-Poly Hip Implanted:Qty: 1 Explanted:Qty: 1 on 01/25/2018 at [facility] Right: Hip [employer] 12/20/2019 [id number] / / [id number] Procedures Procedure Name Priority Date/Time Associated Diagnosis Comments GLUCOSE - POINT OF CARE Routine 01/27/2018 8:14 AM PROMOTION OFFICER from Last 3 Months or Most Recently Relevant to Health Maintenance Results * GLUCOSE - POINT OF CARE (01/27/2018 8:14 AM PROMOTION OFFICER) [facility] Glucose WB/POC 101 70 - 106 mg/dL 01/27/2018 11:52 AM PROMOTION OFFICER [facility] Specimen Type CAPILLARY BLOOD 01/27/2018 11:52 AM PROMOTION OFFICER [facility] Blood BLOOD SPECIMEN / Unknown 01/27/2018 8:14 AM PROMOTION OFFICER 01/27/2018 11:52 AM PROMOTION OFFICER Vignesh Gupta IV, MD LAB - POINT OF CARE ORDERABLES [facility] [address] [place] [address] from Last 3 Months or Most Recently Relevant to Health Maintenance Advance Directives * Full Code (Latest Code Status on File) Date Activated Date Inactivated Comments 01/25/2018 12:01 PM 01/27/2018 1:17 PM
--- OUTSIDE RECORDS SUMMARY | 2024-05-27 08:07 | XMS_ITS | Referral Summary ---
Author Organization [facility] Address [address] [place] [address] Care Team Providers Care Facilities Mechanical Design Engineer Name Role Phone Unavailable Primary Care Provider Unavailabl e Source Comments [facility],non-owned Affiliates and Associated Physician Practices is amultiple site organization consisting of ambulatory clinics and hospital sitesin [place], [place], [place] and [place]. This disclosure is being madepursuant to the Care Everywhere program and may not contain all information available regarding this patient. Last updated 17.[facility] [employer] Allergies Active Allergy Reactions Criticality Noted Date [...] Comments Blood Pressure 111/69 01/27/2018 8:01 AM MINER OPERATOR Pulse 76 01/27/2018 8:01 AM MINER OPERATOR Temperature 36.7 C (98.1 F) 01/27/2018 8:01 AM MINER OPERATOR Respiratory Rate 14 01/27/2018 8:01 AM MINER OPERATOR Oxygen Saturation 98% 01/27/2018 8:01 AM MINER OPERATOR Inhaled Oxygen Concentration - - Weight 90.3 kg (199 lb) 01/25/2018 6:10 AM MINER OPERATOR Height 177.8 cm (5' 10 ) 01/25/2018 6:10 AM MINER OPERATOR Body Mass Index 28.55 01/25/2018 6:10 AM MINER OPERATOR Functional Status Functional Status Response Date of [...] on file Medical Devices Implanted Type Area Financial Aid Administrator Device Identifier Shelf Expiration Date Model / Serial / Lot Shell Actb 56mm Hip Lmt Hl Ti Por Implanted:Qty: 1 on 01/25/2018 at [facility] Right: Hip [employer] 01/06/2028 [id number] / / [id number] Acetabular Liner 40mm Implanted:Qty: 1 on 01/25/2018 at [facility] Right: Hip [employer] 05/31/2022 [id number] / / [id number] Offset Stem 3 Taper Implanted:Qty: 1 on 01/25/2018 at [facility] Right: Hip [employer] 09/18/2021 01.28356.03 0 / / [id number] Femoral Head 40mm Implanted:Qty: 1 on 01/25/2018 at [facility] Right: Hip [employer] / / [id number] Explanted Type Area Financial Aid Administrator Device Identifier Shelf Expiration Date Model / Serial / Lot Pin Fx 22.9cm 4mm Stnm Thrd Ss 1 End Explanted:Qty: 2 on 01/25/2018 at [facility] [employer] [id number] / / Liner Actb Rnglc Mxrm 24 36mm E-Poly Hip Implanted:Qty: 1 Explanted:Qty: 1 on 01/25/2018 at [facility] Right: Hip [employer] 12/20/2019 [id number] / / [id number] Procedures Procedure Name Priority Date/Time Associated Diagnosis Comments GLUCOSE - POINT OF CARE Routine 01/27/2018 8:14 AM MINER OPERATOR from Last 3 Months or Most Recently Relevant to Health Maintenance Results * GLUCOSE - POINT OF CARE (01/27/2018 8:14 AM MINER OPERATOR) [facility] Glucose WB/POC 101 70 - 106 mg/dL 01/27/2018 11:52 AM MINER OPERATOR [facility] Specimen Type CAPILLARY BLOOD 01/27/2018 11:52 AM MINER OPERATOR [facility] Blood BLOOD SPECIMEN / Unknown 01/27/2018 8:14 AM MINER OPERATOR 01/27/2018 11:52 AM MINER OPERATOR Vignesh Gupta IV, MD LAB - POINT OF CARE ORDERABLES [facility] [address] [place] [address] from Last 3 Months or Most Recently Relevant to Health Maintenance Advance Directives * Full Code (Latest Code Status on File) Date Activated Date Inactivated Comments 01/25/2018 12:01 PM 01/27/2018 1:17 PM
== END 2024-05-27 08:06 | disposition home or self-care (01) ==
LOC: CHSIMG 08:06
PROVIDERS: PCP Internal Medicine; Visit Provider Internal Medicine
DX: S49.92XA Unspecified injury of left shoulder and upper arm, initial encounter (principal); S46.012A Strain of muscle(s) and tendon(s) of the rotator cuff of left shoulder, initial encounter; M19.012 Primary osteoarthritis, left shoulder; M67.814 Other specified disorders of tendon, left shoulder; M25.412 Effusion, left shoulder; M75.52 Bursitis of left shoulder; S43.432A Superior glenoid labrum lesion of left shoulder, initial encounter
CPT/HCPCS: 73221

== ENCOUNTER 2024-05-31 16:08 | Outpatient (RCR) | payer MEDICARE, SELFPAY ==
--- NOTE | 2024-05-31 17:17 | OPREHPOC ---
Outpatient Therapy Plan of Care This is a Multidisciplinary Plan of Care that may contain components documented by all disciplines (PT, OT, and ST.) PT Problem 1 PT Problem #1 Knowledge Deficit PT Goal 1 Goal / Goal Update The patient will demonstrate independence in a home exercise program. Target Visit 4 PT Problem 2 PT Problem #2 Pain PT Goal 1 Goal / Goal Update The patient will report no greater than 3/10 left shoulder pain with washing his hair. Target Visit 6 PT Problem 3 PT Problem #3 Impaired Range of Motion PT Goal 1 Goal / Goal Update The patient will demonstrate improved left shoulder flexion AROM to 120 degrees to improve ability to wash and groom his hair. Target Visit 6 PT Problem 4 PT Problem #4 Impaired Functional Mobility PT Goal 1 Goal / Goal Update The patient will demonstrate 10% or less self perceived disability per the Quick DASH questionnaire. Target Visit 6
--- NOTE | 2024-05-31 17:17 | PTOPEVAL1 ---
Assessment and note entered by Yen Dickson, PT Evaluation Information Assessment Status Evaluation Diagnosis L full thickness rotator cuff tear, SLAP tear ICD-10 Condition Codes (PT) Pain in left shoulder M25.512 Onset 05/24/24 Subjective Information Kunal Hopkins reports he tripped while putting his dog in his kennel and landed onto his left shoulder with the arm tucked in. He had a lot of pain and difficulty moving his arm to the side so he went to the doctor. He had a MRI that showed he has a SLAP tear and 2 full thickness rotator cuff tears. He reports Dr. Estrella said he needs surgery but he wants to put it off until the fall. He is retired but still active hunting, fishisg, riding motorcycles, and performing yard work. He still does some digging for contractors as well. He has not tried any of these activities since the injury but does have limitations with washing his hair and reaching overhead and to the side. Reported Pain Level Pain Score 0: Self Report Assessment PT Clinical Summary Kunal Hopkins presents one week post fall on the left side with subsequent SLAP tear and full thickness tears of the supraspinatus and infraspinatus. He has difficulty with lifting his left arm to the side and overhead leading difficulty with ADLs like washing his hair. He objectively demonstrates decreased left shoulder AROM, decreased left shoulder strength, and decreased posture. He will benefit from skilled PT to address these limitations. Plan of Care Interventions Electrical Stimulation,Hot Pack/Cold Pack,Manual Therapy,Neuro Re-education,Patient/Caregiver Education,Therapeutic Activities,Therapeutic Exercise PT Services Indicated Yes Treatment Frequency and 2 times a week for 6 visits Duration These treatments will address the objective and functional deficits as defined above. The patient will be advanced safely and appropriately in order for the patient to progress towards his/her prior level of function. Additional exercises will be introduced and as well as a comprehensive home exercise program upon discharge, if needed, ?to ensure carryover of functional gains achieved in the clinic. This treatment plan has been reviewed and agreement upon by the patient.
--- NOTE | 2024-06-06 17:06 | OPREHPOC ---
Outpatient Therapy Plan of Care This is a Multidisciplinary Plan of Care that may contain components documented by all disciplines (PT, OT, and ST.) PT Problem 1 PT Problem #1 Knowledge Deficit PT Goal 1 Goal / Goal Update The patient will demonstrate independence in a home exercise program. Target Visit 4 Progress Met PT Problem 2 PT Problem #2 Pain PT Goal 1 Goal / Goal Update The patient will report no greater than 3/10 left shoulder pain with washing his hair. Target Visit 6 Progress Not Met PT Problem 3 PT Problem #3 Impaired Range of Motion PT Goal 1 Goal / Goal Update The patient will demonstrate improved left shoulder flexion AROM to 120 degrees to improve ability to wash and groom his hair. Target Visit 6 Progress Not Met PT Problem 4 PT Problem #4 Impaired Functional Mobility PT Goal 1 Goal / Goal Update The patient will demonstrate 10% or less self perceived disability per the Quick DASH questionnaire. Target Visit 6 Progress Not Met
--- NOTE | 2024-06-06 17:06 | PTOPDC ---
Assessment and note entered by Yen Dickson, PT Evaluation Information Assessment Status Discharge Diagnosis L full thickness rotator cuff tear, SLAP tear ICD-10 Condition Codes (PT) Pain in left shoulder M25.512 Onset 05/24/24 Subjective Information Kunal reports he has been doing his home exercises until 06/02/24 when his hat started to fly off in the wind and he reached quickly with his left arm to grab it and caused an increase in pain. He has been taking it easy and letting the shoulder rest since then. He has an appointment to see Dr. Wood on 06/13/24. He would like to discontinue skilled PT and just perform home exercises until his surgeon consultation. Reported Pain Level Pain Score 8: Self Report Assessment PT Clinical Summary Kunal Hopkins has completed 3 skilled PT visits for left shoulder pain due to a full thickness rotator cuff tear and SLAP tear. He has been performing home exercises and is scheduled to see an orthopedic shoulder specialist on 06/13/24. He is reporting increased pain over the last few days due to trying to grab his hat as it was blown off his head in the wind. He continues to have deficits in left shoulder AROM and strength. He was instructed in a home exercise program for AAROM and strengthening below 90 degrees. He is being discharged to his home exercise program. Plan of Care PT Services Indicated No
== END 2024-06-06 17:23 | disposition home or self-care (01) ==
LOC: CHSPT 16:08
PROVIDERS: PCP Internal Medicine; Visit Provider Internal Medicine
DX: M25.512 Pain in left shoulder (principal); S43.432A Superior glenoid labrum lesion of left shoulder, initial encounter; W18.30XA Fall on same level, unspecified, initial encounter
CPT/HCPCS: 97110; 97112; 97161; 97750

== ENCOUNTER 2024-06-15 08:02 | Outpatient (RCR) | payer MEDICARE, SELFPAY ==
--- NOTE | 2024-06-15 09:16 | OPREHPOC ---
Outpatient Therapy Plan of Care This is a Multidisciplinary Plan of Care that may contain components documented by all disciplines (PT, OT, and ST.) PT Problem 1 PT Problem #1 Knowledge Deficit PT Goal 1 Goal / Goal Update Independent and compliant with HEP. Target Visit 2 PT Problem 2 PT Problem #2 Impaired Safety Awareness PT Goal 1 Goal / Goal Update Pt to verbalize understanding of the importance of proper positioning and mechanics of the shoulder when performing functional and recreational activities to prevent additional injury. Target Visit 2
--- NOTE | 2024-06-15 09:16 | PTOPEVAL1 ---
Assessment and note entered by Kaela Alan, PT Evaluation Information Assessment Status Evaluation Diagnosis Complete tear of left rotator cuff ICD-10 Condition Codes (PT) Pain in left shoulder M25.512,Weakness R53.1 Other ICD-10 Condition Codes ( S46.012D PT) Onset 06/13/24 Subjective Information Kunal reports that 2 out of his 4 rotator cuff muscles are torn in the L shoulder. He states one of the tears happened years ago and he didn't know about it, and the second tear happened more recently. He just finished up one round of physical therapy last week, was discharged and went to see an orthopedic surgeon. He reports the surgeon told him that the first tear is retracted and cannot be fixed, and that surgery to fix the other tear is not recommended at this time. He states the surgeon sent him back to PT to learn a home exercise program to strengthen the RTC and deltoid, and that if the patient continues to have difficulty in the future then he can get a reverse total shoulder surgery. Kunal denies pain at this time and generally doesn 't have a lot of pain. He reports the last time he had pain was when he quickly reached his L arm up to grab his hat before it blew off his head last week. He notes he's able to do all functional and recreational activities well without much difficulty. Reported Pain Level Pain Score 0: Self Report Assessment PT Clinical Summary Mr. Kunal Hopkins is a 68 yo male who enters the clinic following a visit with his orthopedic surgeon for L rotator cuff tear. He has a history of R rotator cuff tear that was non-surgical, and he has now torn the L rotator cuff. AROM is within functional limits and is symmetrical bilaterally. He demonstrates generalized weakness of the L shoulder compared to the R, most notably in external rotation, however functionally he is still able to perform daily tasks and recreational activities. He will benefit from skilled PT intervention for rotator cuff and deltoid strengthening per his surgeon to improve scapular and L shoulder stability. Plan of Care Interventions Electrical Stimulation,Hot Pack/Cold Pack,Manual Therapy,Neuro Re-education,Patient/Caregiver Education,Therapeutic Activities,Therapeutic Exercise,Self-Care/Home Management PT Services Indicated Yes Treatment Frequency and 1x/week for 2 visits Duration These treatments will address the objective and functional deficits as defined above. The patient will be advanced safely and appropriately in order for the patient to progress towards his/her prior level of function. Additional exercises will be introduced and as well as a comprehensive home exercise program upon discharge, if needed, ?to ensure carryover of functional gains achieved in the clinic. This treatment plan has been reviewed and agreement upon by the patient.
--- NOTE | 2024-06-23 08:36 | OPREHPOC ---
Outpatient Therapy Plan of Care This is a Multidisciplinary Plan of Care that may contain components documented by all disciplines (PT, OT, and ST.) PT Problem 1 PT Problem #1 Knowledge Deficit PT Goal 1 Goal / Goal Update Independent and compliant with HEP. Target Visit 2 Progress Met PT Problem 2 PT Problem #2 Impaired Safety Awareness PT Goal 1 Goal / Goal Update Pt to verbalize understanding of the importance of proper positioning and mechanics of the shoulder when performing functional and recreational activities to prevent additional injury. Target Visit 2 Progress Met
--- NOTE | 2024-06-23 08:36 | PTOPDC ---
Assessment and note entered by Kaela Alan, PT Evaluation Information Assessment Status Discharge Diagnosis Complete tear of left rotator cuff ICD-10 Condition Codes (PT) Pain in left shoulder M25.512,Weakness R53.1 Other ICD-10 Condition Codes ( S46.012D PT) Onset 06/13/24 Subjective Information Kunal denies pain this date and states he's been doing his home exercises without difficulty. He feels prepared to manage his pain and shoulder function with his HEP to improve and maintain cuff and deltoid strength. Reported Pain Level Pain Score 0: Self Report Assessment PT Clinical Summary Mr. Santiago has attended 2 total skilled physical therapy visits for exercise prescription for the management of a full tear of the L rotator cuff. After being prescribed his HEP at initial evaluation Mr. Santiago reports he's been independent with it and has no difficulty performing the exercises. He feels prepared to manage his shoulder pain on his own to maintain cuff and deltoid strength to perform functional activities with less pain. Plan of Care PT Services Indicated No
== END 2024-06-23 09:26 | disposition home or self-care (01) ==
LOC: CHSPT 08:02
DX: S46.012D Strain of muscle(s) and tendon(s) of the rotator cuff of left shoulder, subsequent encounter (principal)
CPT/HCPCS: 97110; 97112; 97161; 97530

== ENCOUNTER 2024-07-26 07:43 | Outpatient (CLI) | payer MEDICARE, SELFPAY ==
--- OUTSIDE RECORDS SUMMARY | 2024-07-26 07:47 | XMS_ITS | Clinical Summary ---
Author Organization [place] [id number] [facility] Address [facility] [place] [address] Care Team Providers Care Groundskeeper Name Role Phone Rohit Estrella MD Primary Care Provider + [phone] Allergies No known active allergies Medications carbidopa-levod opa (SINEMET) 25-100 mg per tabletIndicatio ns:Parkinsonism 1 tab BID for 1 week, then stop 5 Active levothyroxine (SYNTHROID) 112 mcg tablet Take 1 tablet (112 mcg total) by mouth daily Active lisinopril-hydr oCHLOROthiazide (ZESTORETIC) 10-12.5 mg per tablet Take 1 tablet by mouth daily Active lovastatin (MEVACOR) 20 mg tablet Active metFORMIN XR (GLUCOPHAGE XR) 500 mg 24 hr tablet Active Ozempic 0.25 mg or 0.5 mg (2 mg/3 mL) pen injector injection Active propranoloL (INDERAL) 20 mg tablet 3 tabs qam and qpm (60mg BID) 5 Active propranoloL (INDERAL) 20 mg tablet Take 2 tablets (40 mg total) by mouth 2 (two) times a day 120 tablet 11 5 06/30/19 25 Discontinu ed(Reorder ) propranoloL (INDERAL) 20 mg tablet 3 tabs qam (60mg) and 2 tabs qpm (40mg) 150 tablet 6 07/19/19 Discontinu ed(Reorder ) Active Problems Problem Noted Date Diagnosed Date Essential tremor 01/26/2024 Assessment & Plan (01/26/2024 5:51 AM MATE FISHING VESSEL): He has action and postural tremor consistent with Essential Tremor. He doesn't have clear benefit from primidone and may have some side effects including sleepiness and imbalance. It is reasonable to taper primidone to try to reduce these side effects. If tremor gets worse and side effects resolve, we may continue some lower dose of primidone. We will likely need to add another medication for tremor control. He is also taking carbidopa-levodopa which may not be providing benefit for his tremor. We should plan to taper and stop it, after reducing primidone. If needed, we will refer to colleagues for consideration of advanced therapies including focused ultrasound or deep brain stimulation. Plan as phrased to the patient: Reduce primidone 250mg as follows: Reduce morning dose from 2 tabs to 1 tab and continue the evening 1 tab for 2 weeks. Stop the morning 1 tab and continue just the evening 1 tab for 2 weeks. Send update after you have been on 1 tab in the evening for 2 weeks and we may reduce the evening dose further, using 50mg tabs, but I want to know if you think there is any worsening of tremor on the lower dose. Next we will plan to start a new medication called propranolol which will hopefully help your tremor. Next we will eventually plan to taper and likely stop carbidopa-levodopa, but continue carbidopa-levodopa for now. Disease of thyroid gland 05/22/2013 Encounters Date Type Department Care Team Description 06/13/2024 7:40 PM CDT - 06/13/2024 11:59 PM CDT Hospital Encounter [facility] [address] [place] [id number] Discharge Disposition: Discharge to home or self care 06/13/2024 3:30 PM CDT - 06/13/2024 11:59 PM CDT Hospital Encounter [facility] [address] [place] [address] Left shoulder pain, unspecified chronicity Discharge Disposition: Discharge to home or self care 06/13/2024 3:15 PM CDT Office Visit [facility] [address] [facility] [address] [place] [address] Major Wood MD Traumatic complete tear of left rotator cuff, subsequent encounter (Primary Dx); Left shoulder pain, unspecified chronicity 06/02/2024 Telephone [facility] Movement Disorders [address] [place] [phone] Linda Peña RN from Last 3 Months Surgical History Surgery Date Site/Laterality Comments IR FINE NEEDLE ASPIRATION W IMAGE GUIDANCE 06/07/2013 N/A IR FINE NEEDLE ASPIRATION W IMAGE GUIDANCE 06/07/2013 N/A Family History Medical History Relation Name Comments Tremor Neg Hx Social History Tobacco Use Types Packs/Day Years Used Date Smoking Tobacco: Never Tobacco Cessation:Counseling Given: Not Answered Sex and Gender Information Value Date Recorded Sex Assigned at Not on file Legal Sex Male 10:47 AM MATE FISHING VESSEL Gender Identity Not on file Sexual Orientation Not on file Obstetrics History Last Filed Vital Signs Vital Sign Reading Time Taken Comments Blood Pressure 123/68 04/07/2014 8:45 AM MATE FISHING VESSEL Pulse 68 04/07/2014 8:45 AM MATE FISHING VESSEL Temperature - - Respiratory Rate - - Oxygen Saturation 95% 04/07/2014 8:45 AM MATE FISHING VESSEL Inhaled Oxygen Concentration - - Weight 77.1 kg (170 lb) 06/13/2024 4:16 PM CDT Height 177.8 cm (5' 10 ) 06/13/2024 4:16 PM CDT Body Mass Index 24.39 06/13/2024 4:16 PM CDT Plan of Treatment Health Maintenance Due Date Last Done Comments Colon Cancer Screening-Colonoscopy 1956 Depression Screening 1956 Fall Risk Assessment 1955 Hepatitis C Screening 1956 Prostate Cancer Screening-PSA 1956 Hepatitis B Screening 1974 Well Visit 65+ 2021 Covid-19 Vaccine (2023-2 5 season) 2023 01/16/2021, 05/31/2020, 05/10/2020 Influenza Vaccine (Season Ended) 2024 11/25/2022, 01/07/2022, 11/06/2020, Additional history exists DTaP/Tdap/Td Vaccine (2 - Td or Tdap) 05/20/2028 05/20/2018 Zoster Vaccine Completed 07/08/2021, 05/02/2021 Pneumococcal vaccine 65+ Completed 05/25/2022 Procedures Procedure Name Priority Date/Time Associated Diagnosis Comments MSK MR OUTSIDE REFERENCE Routine 06/13/2024 7:40 PM CDT XR SHOULDER LEFT 2 OR MORE VIEWS Schedule Routine, Read Routine (OP Routine) 06/13/2024 4:13 PM CDT Left shoulder pain, unspecified chronicity from Last 3 Months Results * MSK MR Outside Reference (06/13/2024 7:40 PM CDT) Impressions [facility] - 06/13/2024 7:40 PM CDT These images are for Reference purposes only and have not been reviewed by [facility] Radiology. There will be no report generated by a [facility] Radiologist. Narrative [facility] - 06/13/2024 7:40 PM CDT EXAMINATION: Images For Reference Purposes Only us Major Wood MD IMG MRI PROCEDURES Final R esult [facility] * XR Shoulder Left 2+ View (06/13/2024 4:13 PM CDT) Anatomical Region Laterality Modality Upper Extremities, Shoulder Left Comp uted Radiography 06/13/2024 4:37 PM CDT Impressions 06/13/2024 4:37 PM CDT 1. 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 2. Moderate-sized acromial spur. Electronically signed by: Ari Euceda MD Narrative 06/13/2024 4:37 PM CDT EXAMINATION: XR SHOULDER LEFT 2 OR MORE VIEWS HISTORY: Left shoulder pain FINDINGS: No comparison. Alignment is normal. No fracture or dislocation. Moderate-sized subacromial spur. Mild to moderate left acromioclavicular and glenohumeral osteoarthritis. Vascular calcifications. Procedure Note Ari Euceda MD - 06/13/2024 EXAMINATION: XR SHOULDER LEFT 2 OR MORE VIEWS HISTORY: Left shoulder pain FINDINGS: No comparison. Alignment is normal. No fracture or dislocation. Moderate-sized subacromial spur. Mild to moderate left acromioclavicular and glenohumeral osteoarthritis. Vascular calcifications. IMPRESSION: 1. 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 2. Moderate-sized acromial spur. Electronically signed by: Ari Euceda MD Major Wood MD IMG XR PROCEDURES Final Re sult from Last 3 Months Insurance [facility] MEDICARE [employer] [facility] Address: [facility] [address] [place] [address] [facility] MEDICARE ADVANTAGE Care Teams Groundskeeper Relationship Specialty Start Date End Date Rohit Estrella MD [address] [place] [address] PCP - General Internal Medicine 06/22/22
--- OUTSIDE RECORDS SUMMARY | 2024-07-26 07:47 | XMS_ITS | Encounter Summary ---
Author Organization [facility] Health Address [address] [place] [address] Care Team Providers Care Hospitality House Supervisor Name Role Phone Unavailable Primary Care Provider Unavailabl e Encounter Details Date Type Department Care Team (Late st Contact Info) Description 12/06/2017 [facility] Outpatient Visit [facility] [address] [place] [address] Rohit Estrella MD [address] [place] [address] Social History Tobacco Use Types Packs/Day Years Used Date Smoking Tobacco: Never Assessed Sex and Gender Information Value Date Recorded Sex Assigned at Not on file Legal Sex Male 8:57 AM CDT Gender Identity Not on file Sexual Orientation Not on file documented as of this encounter Plan of Treatment Not on file documented as of this encounter Visit Diagnoses Not on filedocumented in this encounter
--- OUTSIDE RECORDS SUMMARY | 2024-07-26 07:47 | XMS_ITS | Referral Summary ---
Author Organization [facility] [address] [facility] Address [address] [place] [address] Care Team Providers Care Inorganic Chemistry Professor Name Role Phone Rohit Estrella MD Primary Care Provider Encounters Date Type Department Care Team Description 06/13/2024 7:40 PM CDT - 06/13/2024 11:59 PM CDT Hospital Encounter [facility] [address] [place] [address] Discharge Disposition: Discharge to home or self care 06/13/2024 3:30 PM CDT - 06/13/2024 11:59 PM CDT Hospital Encounter [facility] [address] [place] [address] Left shoulder pain, unspecified chronicity Discharge Disposition: Discharge to home or self care 06/13/2024 3:15 PM CDT Office Visit [facility] [address] [facility] 2nd Floor [address] [place] [phone] Major oWod MD Traumatic complete tear of left rotator cuff, subsequent encounter (Primary Dx); Left shoulder pain, unspecified chronicity 06/02/2024 Telephone [facility] [address] [place] [phone] Linda Peña RN from Last 3 Months Allergies No known active allergies Medications carbidopa-levod [...] 2 tabs qpm (40mg) 150 tablet 6 5 07/19/19 25 Discontinu ed(Reorder ) Active Problems Problem Noted Date Diagnosed Date Essential tremor 01/26/2024 Assessment & Plan (01/26/2024 5:51 AM BIOFUELS PROCESSING TECHNICIAN): He has action and postural tremor consistent [...] for now. Disease of thyroid gland 05/22/2013 Social History Tobacco Use Types Packs/Day Years Used Date Smoking Tobacco: Never Tobacco Cessation:Counseling Given: Not Answered Sex and Gender Information Value Date Recorded Sex Assigned at Not on file Legal Sex Male 10:47 AM BIOFUELS PROCESSING TECHNICIAN Gender Identity Not on file Sexual Orientation Not on file Last Filed Vital Signs Vital Sign Reading Time Taken Comments Blood Pressure 123/68 04/07/2014 8:45 AM BIOFUELS PROCESSING TECHNICIAN Pulse 68 04/07/2014 8:45 AM BIOFUELS PROCESSING TECHNICIAN Temperature - - Respiratory Rate - - Oxygen Saturation 95% 04/07/2014 8:45 AM BIOFUELS PROCESSING TECHNICIAN Inhaled Oxygen Concentration - - Weight 77.1 kg (170 lb) 06/13/2024 4:16 PM CDT Height 177.8 cm (5' 10 ) 06/13/2024 4:16 PM CDT Body Mass Index 24.39 06/13/2024 4:16 PM CDT Plan of Treatment Not on file Procedures Procedure Name Priority Date/Time Associated Diagnosis Comments MSK MR OUTSIDE REFERENCE Routine 06/13/2024 7:40 PM CDT XR SHOULDER LEFT 2 OR MORE VIEWS Schedule Routine, Read Routine (OP Routine) 06/13/2024 4:13 PM CDT Left shoulder pain, unspecified chronicity from Last 3 Months Results * MSK MR Outside Reference (06/13/2024 7:40 PM CDT) Impressions RAD_PACS[facility] - 06/13/2024 7:40 PM CDT These images are for Reference purposes only and have not been reviewed by [facility]. There will be no report generated by a [facility] Radiologist. Narrative RAD_PACS_[facility] - 06/13/2024 7:40 PM [...] spur. Electronically signed by: Ari Euceda MD us Major Wood MD IMG XR PROCEDURES Final Re sult from Last 3 Months Insurance [facility] MEDICARE [facility] Address: [address] [address] [place] [address] [facility] MEDICARE [facility] Address: [address] [address] [place] [address] Care Teams Inorganic Chemistry Professor Relationship Specialty Start Date End Date Rohit Estrella MD [address] [place] [address] PCP - General Internal Medicine 06/22/22
--- OUTSIDE RECORDS SUMMARY | 2024-07-26 07:47 | XMS_ITS | Clinical Summary ---
Author Organization [facility] Address [address] [place] [address] Care Team Providers Care Oxyhydrogen Welder Name Role Phone Unavailable Primary Care Provider [...] Td Vaccines ( 1 - Tdap) 08/09/1975 Pneumococcal Vaccine: 50+ Ye ars (1 of 1 - PCV) 2006 Zoster Vaccines (1 of 2) 2006 Annual Medicare Wellness Visit 2021 COVID-19 Vaccine ( - 2023-2 5 season) 2023 RSV Immunization or 60+ Years (1 [...] to complete this topic Insurance MED REPLACE [facility] MEDICARE
--- OUTSIDE RECORDS SUMMARY | 2024-07-26 07:47 | XMS_ITS | Clinical Summary ---
Author Organization [facility] [employer] Address [address] [place] [address] Care Team Providers Care Explosives Mixer Operator Name Role Phone Unavailable Primary Care Provider Unavailabl e Source Comments [facility],non-owned Affiliates and Associated Physician Practices is amultiple site organization consisting of ambulatory clinics and hospital sitesin [place], [place], [place] and [place]. This disclosure is being madepursuant to the Care Everywhere program and may not contain all information available regarding this patient. Last updated 17.[facility] [employer] Allergies Active Allergy Reactions Criticality Noted Date Comments Penicillins Swelling 12/30/2017 Medications * Be aware that medications may not be up to date on this document. Alwaysverify current medications with the patient. metFORMIN CR 24hr modified (GLUMETZA) 500 MG (MOD) tablet Take 500 mg by mouth twice daily, before 1 meal & at bedtime. Active glimepiride (AMARYL) 4 MG tablet Take 4 mg by mouth daily with breakfast Active lovastatin (MEVACOR) 10 MG tablet Take 10 mg by mouth at bedtime Active lisinopril-hydr oCHLOROthiazide (PRINZIDE; ZESTORETIC) 10-12.5 MG tablet Take 1 tablet by mouth once daily Active levothyroxine (SYNTHROID) 112 MCG tablet Take 112 mcg by mouth daily before breakfast Active HYDROcodone-peewee taminophen (NORCO) 10-325 MG tablet Take 1 tablet by mouth every 4 hours as needed 60 tablet 9 Active Active Problems Problem Noted Date Diagnosed [...] Comments Blood Pressure 111/69 01/27/2018 8:01 AM COTTON BALER Pulse 76 01/27/2018 8:01 AM COTTON BALER Temperature 36.7 C (98.1 F) 01/27/2018 8:01 AM COTTON BALER Respiratory Rate 14 01/27/2018 8:01 AM COTTON BALER Oxygen Saturation 98% 01/27/2018 8:01 AM COTTON BALER Inhaled Oxygen Concentration - - Weight 90.3 kg (199 lb) 01/25/2018 6:10 AM COTTON BALER Height 177.8 cm (5' 10 ) 01/25/2018 6:10 AM COTTON BALER Body Mass Index 28.55 01/25/2018 6:10 AM COTTON BALER Plan of Treatment Health Maintenance Due Date [...] COVID-19 VACCINE ( - 2023- season) 2023 DEPRESSION SCREENING 03/22/2024 INFLUENZA VACCINE (Season Ended) 2024 Respiratory Syncytial Virus (RSV) Vaccine Pt: or [...] complete this topic MENINGOCOCCAL (Group B) VACCINE SHARED DECISION-MAKING Aged Out No longer eligible based on patient's age to complete this topic MENINGOCOCCAL GROUPS A/C/Y/W VACCINE Aged Out No longer eligible based on patient's age to complete this topic Medical Devices Implanted Type Area Temper Mill Roller Device Identifier Shelf Expiration Date Model / Serial / Lot Shell Actb 56mm Hip Lmt Hl Ti Por Implanted:Qty: 1 on 01/25/2018 at [facility] Right: Hip [employer] 01/06/2028 [id number] / / [id number] Acetabular Liner 40mm Implanted:Qty: 1 on 01/25/2018 at [facility] Right: Hip [employer] 05/31/2022 [id number] / / [id number] Offset Stem 3 Taper Implanted:Qty: 1 on 01/25/2018 at [facility] Right: Hip [employer] 09/18/2021 [id number] 0 / / [id number] Femoral Head 40mm Implanted:Qty: 1 on 01/25/2018 at [facility] Right: Hip [employer] / / [id number] Explanted Type Area Temper Mill Roller Device Identifier Shelf Expiration Date Model / Serial / Lot Pin Fx 22.9cm 4mm Stnm Thrd Ss 1 End Explanted:Qty: 2 on 01/25/2018 at [facility] [employer] [id number] / / Liner Actb Rnglc Mxrm 24 36mm E-Poly Hip Implanted:Qty: 1 Explanted:Qty: 1 on 01/25/2018 at [facility] Right: Hip [employer] 12/20/2019 [id number] / / [id number] Procedures Procedure Name Priority Date/Time Associated Diagnosis Comments GLUCOSE - POINT OF CARE Routine 01/27/2018 8:14 AM COTTON BALER from Last 3 Months or Most Recently Relevant to Health Maintenance Results * GLUCOSE - POINT OF CARE (01/27/2018 8:14 AM COTTON BALER) Glucose WB/POC 101 70 - 106 mg/dL 01/27/2018 11:52 AM COTTON BALER [facility] Specimen Type CAPILLARY BLOOD 01/27/2018 11:52 AM COTTON BALER [facility] Blood BLOOD SPECIMEN / Unknown 01/27/2018 8:14 AM COTTON BALER 01/27/2018 11:52 AM COTTON BALER Vignesh Gupta IV, MD LAB - POINT OF CARE ORDERABLES Final Result [facility] [address] [place] [address] from Last 3 Months or Most Recently Relevant to Health Maintenance Insurance [facility] [place]: [address] [address] [place] [address] [facility] MANAGED MEDICARE ADV Advance Directives * Full Code (Latest Code Status on File) Date Activated Date Inactivated Comments 01/25/2018 12:01 PM 01/27/2018 1:17 PM
[2024-07-26 07:56] LABS: Hematocrit 42.6 % (37.0-46.0); Hemoglobin 14.3 g/dL (12.4-15.3); Mean Corpuscular HGB Conc 33.6 g/dL (32-36); Mean Corpuscular Hemoglobin 28.5 pg (27.0-31.0); Mean Corpuscular Volume 84.9 fL (78.0-102.0); Mean Platelet Volume 9.9 fl (8.7-11.0); Platelet Count Result 157 K/mm3 (150-420); Red Blood Count 5.02 M/mm3 (4.70-6.10); White Blood Count 5.5 K/mm3 (4.8-10.8)
[2024-07-26 07:57] LABS: Add Urine Microscopic? NO; Appearance Urine Clear (Clear); Bilirubin Urine Negative (Negative); Blood Urine Negative (Negative); Color Urine Light Yellow (Yellow); Glucose Urine UA Negative (Negative); Ketones Urine Negative (Negative); Leukocyte Esterase Ur Negative (Negative); Nitrate Urine Negative (Negative); Protein Urine Negative (Negative); Urobilinogen Urine 0.2 mg/dL (0.2-1.0)
[2024-07-26 08:08] LABS: Creatinine Urine 92.55 mg/dL (40-278); Hemoglobin A1C 5.8 % (<5.7); Microalbumin Urine Random < 13.0 mg/L
[2024-07-26 14:21] LABS: Alanine Aminotransferase 17 U/L (6-50); Albumin Level 4.3 g/dL (3.5-5.1); Alkaline Phosphatase 63 U/L (38-126); Anion Gap 4 mmol/L (4-12); Aspartate Amino Transferase 23 U/L (17-59); Bilirubin,Total 1.4 mg/dL (0.2-1.3); Blood Urea Nitrogen 12 mg/dL (9-20); Calcium 9.3 mg/dL (8.4-10.2); Carbon Dioxide 31 mmol/L (22-30); Chloride 105 mmol/L (98-107); Cholesterol 132 mg/dL (0-200); Creatine Kinase 49 U/L (55-170); Estimated Glomerular Filt Rate > 60; Glucose 123 mg/dL (65-110); HDL Direct 43 mg/dL; LDL Cholesterol Calculated 70 mg/dL (<130); Osmolality Calculated 290 mOsm/kg (285-295); Potassium 4.4 mmol/L (3.4-5.0); Sodium 140 mmol/L (137-145); Total Protein 6.8 g/dL (6.3-8.2); Triglycerides 97 mg/dL (<150)
[2024-07-26 14:32] LABS: Free T4 Free Thyroxine 1.63 ng/dL (0.78-2.19)
[2024-07-26 14:46] LABS: Thyroid Stimulating Hormone 0.054 uIU/mL (0.465-4.680)
== END 2024-07-26 07:44 | disposition home or self-care (01) ==
LOC: CHSLAB 07:44
PROVIDERS: PCP Internal Medicine; Visit Provider Internal Medicine
DX: I10 Essential (primary) hypertension (principal); E78.2 Mixed hyperlipidemia; E03.8 Other specified hypothyroidism; E11.65 Type 2 diabetes mellitus with hyperglycemia; D75.1 Secondary polycythemia; E79.0 Hyperuricemia without signs of inflammatory arthritis and tophaceous disease
CPT/HCPCS: 36415; 80053; 80061; 81003; 82043; 82550; 83036; 84439; 84443; 85027

== ENCOUNTER 2024-11-13 12:03 | Outpatient (CLI) | payer MEDICARE, SELFPAY ==
--- OUTSIDE RECORDS SUMMARY | 2024-11-13 12:24 | XMS_ITS | Encounter Summary ---
Author Organization [facility] Address [address] [place] [address] Care Team Providers Care Surgery Scheduler Name Role Phone Unavailable Primary Care Provider Unavailabl e Encounter Details Date Type Department Care Team (Late st Contact Info) Description 12/06/2017 [facility] Outpatient Visit [facility] [address] [place] [address] Rohit Estrella MD [address] [place] [address] Social History Tobacco Use Types [...]
--- OUTSIDE RECORDS SUMMARY | 2024-11-13 12:24 | XMS_ITS | Clinical Summary ---
Author Organization [facility] Address [address] [place] [address] Care Team Providers Care Maritime Pilot Name Role Phone Unavailable Primary Care Provider [...] to complete this topic Insurance MED REPLACE [facility] [place] [address]
--- OUTSIDE RECORDS SUMMARY | 2024-11-13 12:24 | XMS_ITS | Clinical Summary ---
Author Organization [place] [address] [facility] Address [facility] [place] [address] Care Team Providers Care Field Liability Generalist Name Role Phone Rohit Estrella MD Primary Care Provider [phone] Allergies No known active allergies Medications levothyroxine (SYNTHROID) 100 mcg tablet Take 1 tablet (100 mcg total) by mouth machine stamper before breakfast Active lisinopril-hydr oCHLOROthiazide (ZESTORETIC) 10-12.5 mg per tablet Take 1 tablet by mouth daily Active lovastatin (MEVACOR) 20 mg tablet Active metFORMIN XR (GLUCOPHAGE XR) 500 mg 24 hr tablet Active Ozempic 0.25 mg or 0.5 mg (2 mg/3 mL) pen injector injection Active propranoloL (INDERAL) 20 mg tablet Take 6 tablets (120 mg total) by mouth 2 (two) times a day 360 tablet 11 08/22/19 26 Active Active Problems Problem Noted Date Diagnosed Date Essential tremor 01/26/2024 Assessment & Plan (08/23/2024 4:49 PM CDT): He has action and postural tremor consistent with Essential Tremor. He previously trialed primidone without benefit and experienced side effects of sedation and imbalance. He also trialed carbidopa-levodopa without benefit. Tremor did not reportedly worsen at all when either of those were tapered off. He most recently has trialed propranolol up to 240 mg/day without any benefit and has HR 60-63 in office today. We discussed that we could consider cautious increase further while monitoring HR at home (his is a retired nurse) though as he has not seen any benefit it is unlikely he'd have robust response at higher dosing and HR is limiting. We opted to trial a gradual dose reduction while monitoring for tremor worsening. If no interval worsening of tremor we can try tapering off of it altogether and alternatively trialing gabapentin or topiramate next-line. In the future, if needed, we will refer to colleagues for consideration of advanced therapies including focused ultrasound or deep brain stimulation though he is not inclined to consider these and ultimately he feels that tremor is not affecting his overall quality of life much at this time now that he's adapted to using his left hand for tasks. He and his would like to receive some more information on VIM DBS and FUS for future reference and we can mail this to their home. Recommendations: Reduce propranolol from 120 mg BID as follows: Week # 1: 100 mg BID Week # 2: 80 mg BID Week # 3: Provide update to our office and can determine whether to continue taper or if tremor intervally worsens, return to higher dose Follow-up in 6 months, sooner prn Assessment & Plan (01/26/2024 5:51 AM PRINCIPAL ELECTRICAL ENGINEER): He has action and postural tremor consistent [...] Encounters Date Type Department Care Team Description 08/25/[address] [facility] [address] [phone] Evelyn Aiken, PATIENT REGISTRATION REPRESENTATIVE DBS packet 08/23/2024 1:00 PM CDT Office Visit [facility] [address] [phone] Toma Nicole NP Essential tremor 08/21/[address] [facility] [address] [phone] Hardik Jacob RMA 08/21/[address] [facility] [address] [phone] Thiago Pollack MD PhD 08/21/[address] [facility] [address] [phone] Linda Peña RN from Last 3 Months [...] on file Legal Sex Male 10:47 AM PRINCIPAL ELECTRICAL ENGINEER Gender Identity Not on file Sexual Orientation Not on file Obstetrics History Last Filed Vital Signs Vital Sign Reading Time Taken Comments Blood Pressure 132/85 08/23/2024 12:39 PM CDT Pulse 62 08/23/2024 12:39 PM CDT Temperature 36.9 C (98.4 F) 08/23/2024 12:39 PM CDT Respiratory Rate - - Oxygen Saturation 100% 08/23/2024 12:39 PM CDT Inhaled Oxygen Concentration - - Weight 80.9 kg (178 lb 6.4 oz) 08/23/2024 12:39 PM CDT Height 177.8 cm (5' 10) 08/23/2024 12:39 PM CDT Body Mass Index 25.6 08/23/2024 12:39 PM CDT Plan of Treatment Health Maintenance Due Date Last Done Comments Colon Cancer Screening-Colonoscopy 1955 Depression Screening 1956 Fall Risk Assessment 1955 Hepatitis C Screening 1956 Prostate Cancer Screening-PSA 1956 Hepatitis B Screening 1974 Well Visit 65+ 2021 Covid-19 Vaccine (4 - 2023-2 5 season) 2023 01/16/2021, 05/31/2020, 05/10/2020 Influenza Vaccine (#1) 2024 , 01/07/2022, 11/06/2020, Additional history exists DTaP/Tdap/Td Vaccine (2 - Td or Tdap) 05/20/2028 05/20/2018 Zoster Vaccine Completed 07/08/2021, 05/02/2021 Pneumococcal vaccine 65+ Completed 05/25/2022 Insurance [facility] MEDICARE ADVANTAGE U[employer] MEDICARE ADVANTAGE Care Teams Field Liability Generalist Relationship Specialty Start Date End Date Rohit Estrella MD [address] [place] [address] PCP - General Internal Medicine 06/22/22
--- OUTSIDE RECORDS SUMMARY | 2024-11-13 12:24 | XMS_ITS | Clinical Summary ---
Author Organization [facility] Address [address] [place] [address] Care Team Providers Care Us Administrative Law Judge Name Role Phone Unavailable Primary Care Provider Unavailabl e Source Comments [facility],non-owned Affiliates and Associated Physician Practices is amultiple site organization consisting of ambulatory clinics and hospital sitesin [place], [place], [place] and [place]. This disclosure is being madepursuant to the Care Everywhere program and may not contain all information available regarding this patient. Last updated 17.[facility] Allergies Active Allergy Reactions Criticality Noted Date [...] Comments Blood Pressure 111/69 01/27/2018 8:01 AM DEVELOPMENTAL MATHEMATICS INSTRUCTOR Pulse 76 01/27/2018 8:01 AM DEVELOPMENTAL MATHEMATICS INSTRUCTOR Temperature 36.7 C (98.1 F) 01/27/2018 8:01 AM DEVELOPMENTAL MATHEMATICS INSTRUCTOR Respiratory Rate 14 01/27/2018 8:01 AM DEVELOPMENTAL MATHEMATICS INSTRUCTOR Oxygen Saturation 98% 01/27/2018 8:01 AM DEVELOPMENTAL MATHEMATICS INSTRUCTOR Inhaled Oxygen Concentration - - Weight 90.3 kg (199 lb) 01/25/2018 6:10 AM DEVELOPMENTAL MATHEMATICS INSTRUCTOR Height 177.8 cm (5' 10) 01/25/2018 6:10 AM DEVELOPMENTAL MATHEMATICS INSTRUCTOR Body Mass Index 28.55 01/25/2018 6:10 AM DEVELOPMENTAL MATHEMATICS INSTRUCTOR Plan of Treatment Health Maintenance Due Date [...] season) 2023 DEPRESSION SCREENING 03/22/2024 INFLUENZA VACCINE (#1) 2024 Respiratory Syncytial Virus (RSV) Vaccine Pt: [...] this topic Medical Devices Implanted Type Area Infrastructure Architect Device Identifier Shelf Expiration Date Model / Serial / Lot Shell Actb 56mm Hip Lmt Hl Ti Por Implanted:Qty: 1 on 01/25/2018 at [facility] Right: Hip [employer] 01/06/2028 [id number] / / [id number] Acetabular Liner 40mm Implanted:Qty: 1 on 01/25/2018 at [facility] Right: Hip [employer] 05/31/2022 [id number] / / [id number] Offset Stem 3 Taper Implanted:Qty: 1 on 01/25/2018 at [facility] Right: Hip [employer] 09/18/2021 [id number] 0 / / [id number] Femoral Head 40mm Implanted:Qty: 1 on 01/25/2018 at [facility] Right: Hip [employer] / / [id number] Explanted Type Area Infrastructure Architect Device Identifier Shelf Expiration Date Model / Serial / Lot Pin Fx 22.9cm 4mm Stnm Thrd Ss 1 End Explanted:Qty: 2 on 01/25/2018 at [facility] [employer] [id number] / / Liner Actb Rnglc Mxrm 24 36mm E-Poly Hip Implanted:Qty: 1 Explanted:Qty: 1 on 01/25/2018 at [facility] Right: Hip [employer] 12/20/2019 [id number] / / [id number] Procedures Procedure Name Priority Date/Time Associated Diagnosis Comments GLUCOSE - POINT OF CARE Routine 01/27/2018 8:14 AM DEVELOPMENTAL MATHEMATICS INSTRUCTOR from Last 3 Months or Most Recently Relevant to Health Maintenance Results * GLUCOSE - POINT OF CARE (01/27/2018 8:14 AM DEVELOPMENTAL MATHEMATICS INSTRUCTOR) Glucose WB/POC 101 70 - 106 mg/dL 01/27/2018 11:52 AM DEVELOPMENTAL MATHEMATICS INSTRUCTOR [facility] Specimen Type CAPILLARY BLOOD 01/27/2018 11:52 AM DEVELOPMENTAL MATHEMATICS INSTRUCTOR [facility] Blood BLOOD SPECIMEN / Unknown 01/27/2018 8:14 AM DEVELOPMENTAL MATHEMATICS INSTRUCTOR 01/27/2018 11:52 AM DEVELOPMENTAL MATHEMATICS INSTRUCTOR Vignesh Gupta IV, MD LAB - POINT OF CARE ORDERABLES Final Result [facility] [address] [place] [address] from Last 3 Months or Most Recently Relevant to Health Maintenance Insurance [facility] [place] Address: [address] [address] [place] [address] [facility] MANAGED MEDICARE ADV Advance Directives * Full Code (Latest Code Status on File) Date Activated Date Inactivated Comments 01/25/2018 12:01 PM 01/27/2018 1:17 PM
[2024-11-13 12:59] LABS: Free T3 3.52 pg/mL (2.18-3.98); Free T4 Free Thyroxine 1.56 ng/dL (0.78-2.19)
[2024-11-13 13:13] LABS: Thyroid Stimulating Hormone 1.300 uIU/mL (0.465-4.680)
== END 2024-11-13 12:04 | disposition home or self-care (01) ==
LOC: CHSLAB 12:04
PROVIDERS: PCP Internal Medicine; Visit Provider Internal Medicine
DX: E03.8 Other specified hypothyroidism (principal)
CPT/HCPCS: 36415; 84439; 84443; 84481

== ENCOUNTER 2025-01-20 11:57 | Emergency (ER) | payer MEDICARE, SELFPAY ==
--- NOTE | ~2025-01-20 | CT_ITS ---
CT HEAD NON-CONTRAST Clinical History: Syncope episode, nausea, vomiting Comparison: None Technique: Unenhanced axial images skull base to vertex Coronal, sagittal reformats CT images acquired with automatic exposure control for dose reduction DLP: 681 mGy-cm Findings: Sulci, ventricles: Unremarkable. No intracerebral hemorrhage. No evidence acute territorial infarct. No mass effect, midline shift. Bony calvarium intact. Visualized paranasal sinuses: Clear. Mastoid air cells: Clear. IMPRESSION: 1. No acute intracranial findings. Reviewed, dictated and finalized at location R.
[2025-01-20 11:57] VITALS: BP 132/96; PULSE 62; RESP 14; TEMP 36.5; O2SAT 99
--- OUTSIDE RECORDS SUMMARY | 2025-01-20 12:04 | XMS_ITS | Clinical Summary ---
Author Organization [place] [address] [facility] Address [facility] [place] [address] Care Team Providers Care Filler Sifter Helper Name Role Phone Rohit Estrella MD Primary Care Provider [phone] Allergies No known active allergies Medications levothyroxine (SYNTHROID) 100 mcg tablet Take 1 tablet (100 mcg total) by mouth packing and wrapping supervisor before breakfast Active lisinopril-hyd roCHLOROthiazi de (ZESTORETIC) 10-12.5 mg per tablet Take 1 tablet by mouth daily Active lovastatin (MEVACOR) 20 mg tablet Active metFORMIN XR (GLUCOPHAGE XR) 500 mg 24 hr tablet Active Ozempic 0.25 mg or 0.5 mg (2 mg/3 mL) pen injector injection Active propranoloL (INDERAL) 20 mg tablet TAKE 3 TABLETS BY MOUTH IN THE MORNING AND 2 IN THE EVENING 150 tablet 5 01/09/20 25 Active propranoloL (INDERAL) 20 mg tablet Take 6 tablets (120 mg total) by mouth 2 (two) times a day 360 tablet 11 08/22/19 25 025 Discontinued Active Problems Problem Noted Date Diagnosed Date [...] prn Assessment & Plan (01/26/2024 5: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 Disease of thyroid gland 05/22/2013 Surgical History Surgery Date Site/Laterality Comments IR [...] on file Legal Sex Male 10:47 AM RESTAURANT DELIVERY DRIVER Gender Identity Not on file Sexual Orientation [...] Visit 65+ 2021 Covid-19 Vaccine (4 - 2024-2 6 season) 2024 01/16/2021, 05/31/2020, 05/10/2020 Influenza Vaccine (#1) 2024 , 01/07/2022, 11/06/2020, Additional history exists DTaP/Tdap/Td Vaccine (2 - Td or Tdap) 05/20/2028 05/20/2018 Zoster Vaccine Completed 07/08/2021, 05/02/2021 Pneumococcal vaccine 65+ Completed 05/25/2022 Insurance [facility] MEDICARE ADVANTAGE [facility] MEDICARE ADVANTAGE [place] [id number] Care Teams Filler Sifter Helper Relationship Specialty Start Date End Date Rohit Estrella MD [address] [place] [id number] PCP - General Internal Medicine 06/22/22
--- OUTSIDE RECORDS SUMMARY | 2025-01-20 12:04 | XMS_ITS | Clinical Summary ---
Author Organization [facility] Address [address] [place] [address] Care Team Providers Care Insulation Cupola Charger Name Role Phone Unavailable Primary Care Provider [...] Annual Medicare Wellness Visit 2021 COVID-19 Vaccine (1 - 2024-2 6 season) 2024 Influenza Adult (#1) 2024 RSV Immunization or 60+ Years (1 - 1-dose 75+ series) 08/09/2031 Hepatitis A Vaccines Aged Out No long er eligible based on patient's age to complete this topic Meningococcal B Vaccine Aged Out No l onger eligible based on patient's age to complete this topic Meningococcal Vaccine Aged Out No fawn marhta eligible based on patient's age to complete this topic RSV Immunizations Under 20 Months Aged Out No longer eligible based on patient's age to complete this topic Insurance MED REPLACE [facility] MEDICARE
--- OUTSIDE RECORDS SUMMARY | 2025-01-20 12:04 | XMS_ITS | Clinical Summary ---
Author Organization [facility] [employer] Address [address] [place] [address] Care Team Providers Care Gallery Intern Name Role Phone Unavailable Primary Care Provider Unavailabl e Source Comments [facility],non-owned Affiliates and Associated Physician Practices is amultiple site organization consisting of ambulatory clinics and hospital sitesin [place], [place] and [place]. This disclosure is being madepursuant to the Care Everywhere program and may not contain all information available regarding this patient. Last updated 17.[facility] [employer] Allergies Active Allergy Reactions Criticality Noted Date [...] Comments Blood Pressure 111/69 01/27/2018 8:01 AM PAYROLL AND BENEFITS ASSISTANT Pulse 76 01/27/2018 8:01 AM PAYROLL AND BENEFITS ASSISTANT Temperature 36.7 C (98.1 F) 01/27/2018 8:01 AM PAYROLL AND BENEFITS ASSISTANT Respiratory Rate 14 01/27/2018 8:01 AM PAYROLL AND BENEFITS ASSISTANT Oxygen Saturation 98% 01/27/2018 8:01 AM PAYROLL AND BENEFITS ASSISTANT Inhaled Oxygen Concentration - - Weight 90.3 kg (199 lb) 01/25/2018 6:10 AM PAYROLL AND BENEFITS ASSISTANT Height 177.8 cm (5' 10) 01/25/2018 6:10 AM PAYROLL AND BENEFITS ASSISTANT Body Mass Index 28.55 01/25/2018 6:10 AM PAYROLL AND BENEFITS ASSISTANT Plan of Treatment Health Maintenance Due Date [...] 01/27/2021 8, 01/26/2018, 01/26/2018, Additional history exists DEPRESSION SCREENING 03/22/2024 COVID-19 VACCINE (1 - season) 2024 INFLUENZA VACCINE (#1) 2024 Respiratory Syncytial Virus [...] this topic Medical Devices Implanted Type Area Construction Job Cost Estimator Device Identifier Shelf Expiration Date Model / Serial / Lot Shell Actb 56mm Hip Lmt Hl Ti Por Implanted:Qty: 1 on 01/25/2018 at [facility] Right: Hip [employer] 01/06/2028 [id number] / / [id number] Acetabular Liner 40mm Implanted:Qty: 1 on 01/25/2018 at [facility] Right: Hip [employer] 05/31/2022 [id number] / / [id number] Offset Stem 3 Taper Implanted:Qty: 1 on 01/25/2018 at [facility] Right: Hip [employer] 09/18/2021 [id number] 0 / / [id number] Femoral Head 40mm Implanted:Qty: 1 on 01/25/2018 at [facility] Right: Hip [employer] / / [id number] Explanted Type Area Construction Job Cost Estimator Device Identifier Shelf Expiration Date Model / Serial / Lot Pin Fx 22.9cm 4mm Stnm Thrd Ss 1 End Explanted:Qty: 2 on 01/25/2018 at [facility] [employer] [id number] / / Liner Actb Rnglc Mxrm 24 36mm E-Poly Hip Implanted:Qty: 1 Explanted:Qty: 1 on 01/25/2018 at [facility] Right: Hip [employer] 12/20/2019 [id number] / / [id number] Procedures Procedure Name Priority Date/Time Associated Diagnosis Comments GLUCOSE - POINT OF CARE Routine 01/27/2018 8:14 AM PAYROLL AND BENEFITS ASSISTANT from Last 3 Months or Most Recently Relevant to Health Maintenance Results * GLUCOSE - POINT OF CARE (01/27/2018 8:14 AM PAYROLL AND BENEFITS ASSISTANT) Glucose WB/POC 101 70 - 106 mg/dL 01/27/2018 11:52 AM PAYROLL AND BENEFITS ASSISTANT [facility] Specimen Type CAPILLARY BLOOD 01/27/2018 11:52 AM PAYROLL AND BENEFITS ASSISTANT [facility] Blood BLOOD SPECIMEN / Unknown 01/27/2018 8:14 AM PAYROLL AND BENEFITS ASSISTANT 01/27/2018 11:52 AM PAYROLL AND BENEFITS ASSISTANT Vignesh Gupta IV, MD LAB - POINT OF CARE ORDERABLES Final Result [facility] [address] [place] [address] from Last 3 Months or Most Recently Relevant to Health Maintenance Insurance [facility] Address: [address] [address] [place] [address] [facility] MANAGED MEDICARE ADV Advance Directives * Full Code (Latest Code Status on File) Date Activated Date Inactivated Comments 01/25/2018 12:01 PM 01/27/2018 1:17 PM
--- OUTSIDE RECORDS SUMMARY | 2025-01-20 12:04 | XMS_ITS | Encounter Summary ---
Author Organization [facility] Address [address] [place] [address] Care Team Providers Care Food Trades Assistants Name Role Phone Unavailable Primary Care Provider Unavailabl e Encounter Details Date Type Department Care Team (Late st Contact Info) Description 12/06/2017 [facility] Outpatient Visit [facility] [address] [place] [address] Rohit Estrella MD [address] [place] [address] Social History Tobacco Use Types [...]
--- NOTE | 2025-01-20 12:13 | ECG_ITS ---
Test Date: 2025-01-20 12:27:43 Measurements Intervals [place]der[place]ott Rate: 60 P: 7 LA: 182 QRS: -8 QRSD: 98 T: 55 QT: 421 QTc: 421 Interpretive Statements SINUS RHYTHM No previous ECG available for comparison Electronically Signed On 01-21-2025 03:10:47 [facility] ASSISTANT by Erin Gusman M.D.
--- NOTE | 2025-01-20 12:36 | ED_ITS ---
HPI - Syncope General Chief Complaint: Syncope Stated Complaint: syncope Time Seen by Provider: 01/20/25 12:07 Source: patient and family Mode of arrival: wheelchair History of Present Illness HPI narrative: This is a 69-year-old male with history of hypertension presents after single pull episode while at a service that was extremely crowded felt sweaty and clammy and passed out happened episode of nausea and vomiting otherwise no chest pain no shortness of breath no fever chills no headache no blurry vision no neurological deficits. complaint: loss of consciousness Onset (ago): hour(s) -: second(s) Context: standing up Related Data Home Medications ?Medication ?Instructions ?Recorded ?Confirmed ?Last Taken ?Type allopurinol 100 mg tablet 100 mg PO DAILY 01/20/25 Un known History levothyroxine 100 mcg tablet mcg 01/20/25 Unknown His tory lisinopril 10 tablet 01/20/25 Unknown His tory mg-hydrochlorothiazide 12.5 mg tablet lovastatin 20 mg tablet mg 01/20/25 Unknown History metformin 500 mg tablet,extended mg PO 01/20/25 Unkno wn History release 24 hr propranolol 20 mg tablet mg 01/20/25 Unknown History semaglutide 0.25 mg or 0.5 mg (2 mg subcut 01/20/25 U nknown History mg/3 mL) subcutaneous pen injector (Ozempic) Allergies Allergy/AdvReac Type Severity Reaction Status Date / Time penicillin G Allergy Unknown rash Verified 01/20/25 12:21 Review of Systems Review of Systems: All systems reviewed & are unremarkable except as noted in HPI and below PMFSH Past Medical History Medical History Diabetes mellitus HTN (hypertension) Exam Const: General: healthy appearing, no acute distress and alert Nutritional Appearance: well nourished and thin Orientation/consciousness: patient oriented x3 Limitations: no limitations HENMT: Head: normal to inspection Eyes: Conjunctivae: conjunctivae normal Pupils: Equal, round and reactive pupils present EOM: EOMs intact bilaterally Direct Ophthalmoscopy: no photophobia Neck: Neck: normal visual inspection, no lymphadenopathy and no meningeal signs Resp: Effort & Inspection: normal respiratory effort Auscultation: clear to auscultation bilaterally Cardio: Rate: regular rate Rhythm: regular rhythm GI: GI Palp: Yes Soft to palpation Auscultation: normal bowel sounds : General: Yes bladder normal to palpation Back/Spine/Pelvis: Back: no CVA tenderness Skin: General skin exam: normal color Neuro: General: patient oriented x3, moves all extremities, no meningeal signs and no focal motor deficits Extrem: General: normal to inspection, no clubbing, cyanosis or edema and no pedal edema Course Course Emergency Course: Medical decision making narrative: Patient was evaluated by myself in the emergency department. History obtained from the patient who is an independent historian physical exam performed and reviewed and witnessed by nurse. Patient had CT scan of the brain which showed no acute abnormalities. Labs were reviewed and within normal limits EKG showed normal sinus rhythm. Repeat assessment: Patient doing repeat exam no acute distress Symptoms have improved since arrival to the emergency department. Repeat vitals are stable Patient and family agree with discussion and after shared medical decision making and agree with discharge All questions answered to the patient's satisfaction Follow-up with primary within 3 to 5 days. Vital Signs Vital signs: Vital Signs Temperature 36.5 C 01/20/25 11:57 Pulse Rate 62 01/20/25 11:57 Respiratory Rate 14 01/20/25 11:57 Blood Pressure 132/96 H 01/20/25 11:57 Pulse Oximetry 99 01/20/25 11:57 Oxygen Delivery Room Air 01/20/25 11:57 Temperature 36.5 C 01/20/25 11:57 Pulse Rate 62 01/20/25 11:57 Respiratory Rate 14 01/20/25 11:57 Blood Pressure 132/96 H 01/20/25 11:57 Pulse Oximetry 99 01/20/25 11:57 Oxygen Delivery Room Air 01/20/25 11:57 Critical Care Time Critical Care Time Critical Care Time: No Discharge Plan Discharge Clinical Impression: Vasovagal syncope Patient Disposition: Home Condition: Stable Instructions: Antibiotic Form, Syncope (ED) Additional Instructions: Advised follow-up with primary care physician when the next 3 to 5 days further evaluation and treatment. Patient Language: Pashto Prescriptions: No Action allopurinol 100 mg tablet 100 mg PO DAILY levothyroxine 100 mcg tablet lisinopril-hydrochlorothiazide 10-12.5 mg tablet lovastatin 20 mg tablet propranolol 20 mg tablet metformin 500 mg tablet extended release 24 hr PO Ozempic 0.25 mg or 0.5 mg (2 mg/3 mL) pen injector SUBCUT Follow-up/Referrals: Rohit Estrella MD [Primary Care Provider, Internal Medicine] Time of Disposition: 12:58
[2025-01-20 12:51] LABS: Alanine Aminotransferase 18 U/L (6-50); Albumin Level 4.5 g/dL (3.5-5.1); Alkaline Phosphatase 59 U/L (38-126); Anion Gap 8 mmol/L (4-12); Aspartate Amino Transferase 23 U/L (17-59); Bilirubin,Total 1.3 mg/dL (0.2-1.3); Blood Urea Nitrogen 13 mg/dL (9-20); Calcium 9.5 mg/dL (8.4-10.2); Carbon Dioxide 32 mmol/L (22-30); Chloride 101 mmol/L (98-107); Estimated CRCL calculation 56 ml/min; Estimated Glomerular Filt Rate > 60; Glucose 163 mg/dL (65-110); Osmolality Calculated 296 mOsm/kg (285-295); Potassium 4.5 mmol/L (3.4-5.0); Sodium 141 mmol/L (137-145); Total Protein 8.4 g/dL (6.3-8.2)
--- NOTE | 2025-01-20 12:58 | PC.NURSE ---
pt visiting with family in room. no needs at this time.
[2025-01-20 13:02] VITALS: BP 117/86; PULSE 61; RESP 18; O2SAT 98
== END 2025-01-20 13:05 | disposition home or self-care (01) ==
LOC: CHSED 12:40
PROVIDERS: Emergency Provider Emergency Medicine; PCP Internal Medicine
DX: R55 Syncope and collapse (principal); I10 Essential (primary) hypertension; E11.9 Type 2 diabetes mellitus without complications; Z79.899 Other long term (current) drug therapy; Z79.84 Long term (current) use of oral hypoglycemic drugs
CPT/HCPCS: 36415; 70450; 80053; 93005; 99284

== ENCOUNTER 2025-01-23 08:45 | Outpatient (CLI) | payer MEDICARE, SELFPAY ==
[2025-01-23 09:14] LABS: Hematocrit 45.6 % (37.0-46.0); Hemoglobin 15.5 g/dL (12.4-15.3); Mean Corpuscular HGB Conc 34.0 g/dL (32-36); Mean Corpuscular Hemoglobin 29.0 pg (27.0-31.0); Mean Corpuscular Volume 85.4 fL (78.0-102.0); Platelet Count Result 187 K/mm3 (150-420); Red Blood Count 5.34 M/mm3 (4.70-6.10); White Blood Count 5.9 K/mm3 (4.8-10.8)
--- OUTSIDE RECORDS SUMMARY | 2025-01-23 09:24 | XMS_ITS | Clinical Summary ---
Author Organization [place] [id number] [facility] Address [address] [place] [address] Care Team Providers Care Pneumatic Press Hand Name Role Phone Rohit Estrella MD Primary Care Provider [phone] Allergies No known active allergies Medications levothyroxine (SYNTHROID) 100 mcg tablet Take 1 tablet (100 mcg total) by mouth glass setter before breakfast Active lisinopril-hyd roCHLOROthiazi de (ZESTORETIC) [...] prn Assessment & Plan (01/26/2024 5:51 AM RAKER BUFFING WHEEL): He has action and postural tremor consistent [...] on file Legal Sex Male 10:47 AM RAKER BUFFING WHEEL Gender Identity Not on file Sexual Orientation [...] 05/02/2021 Pneumococcal vaccine 65+ Completed 05/25/2022 Insurance [facility] MEDICARE ADVANTAGE [facility] Address: [place] [id number] [place] [address] [facility] MEDICARE ADVANTAGE [facility] MEDICARE Address: [address] [address] [place] [phone] Care Teams Pneumatic Press Hand Relationship Specialty Start Date End Date Rohit Estrella MD [address] [place] [address] PCP - General Internal Medicine 06/22/22
--- OUTSIDE RECORDS SUMMARY | 2025-01-23 09:24 | XMS_ITS | Encounter Summary ---
Author Organization [facility] Health Address [address] [place] [address] Care Team Providers Care Disability Program Navigator Name Role Phone Unavailable Primary Care Provider Unavailabl e Encounter Details Date Type Department Care Team (Late st Contact Info) Description 12/06/2017 [facility] Outpatient Visit [facility] [address] [place] [address] Rohit Estrella MD [address] [place] [address] Social History Tobacco Use Types [...]
--- OUTSIDE RECORDS SUMMARY | 2025-01-23 09:24 | XMS_ITS | Clinical Summary ---
Author Organization [facility] Address [address] [place] [address] Care Team Providers Care Milk Condenser Name Role Phone Unavailable Primary Care Provider Unavailabl e Source Comments [facility],non-owned Affiliates and Associated Physician Practices is amultiple site organization consisting of ambulatory clinics and hospital sitesin [place], [place], [place] and [place]. This disclosure is being madepursuant to the Care Everywhere program and may not contain all information available regarding this patient. Last updated 17.[facility] Allergies Active Allergy Reactions Criticality Noted Date [...] Comments Blood Pressure 111/69 01/27/2018 8:01 AM COMMISSIONER CONSERVATION OF RESOURCES Pulse 76 01/27/2018 8:01 AM COMMISSIONER CONSERVATION OF RESOURCES Temperature 36.7 C (98.1 F) 01/27/2018 8:01 AM COMMISSIONER CONSERVATION OF RESOURCES Respiratory Rate 14 01/27/2018 8:01 AM COMMISSIONER CONSERVATION OF RESOURCES Oxygen Saturation 98% 01/27/2018 8:01 AM COMMISSIONER CONSERVATION OF RESOURCES Inhaled Oxygen Concentration - - Weight 90.3 kg (199 lb) 01/25/2018 6:10 AM COMMISSIONER CONSERVATION OF RESOURCES Height 177.8 cm (5' 10) 01/25/2018 6:10 AM COMMISSIONER CONSERVATION OF RESOURCES Body Mass Index 28.55 01/25/2018 6:10 AM COMMISSIONER CONSERVATION OF RESOURCES Plan of Treatment Health Maintenance Due Date [...] this topic Medical Devices Implanted Type Area Set Up Mechanic Coil Winding Machines Device Identifier Shelf Expiration Date Model / Serial / Lot Shell Actb 56mm Hip Lmt Hl Ti Por Implanted:Qty: 1 on 01/25/2018 at [facility] Right: Hip [employer] 01/06/2028 [id number] / / [id number] Acetabular Liner 40mm Implanted:Qty: 1 on 01/25/2018 at [facility] Right: Hip [employer] 05/31/2022 [id number] / / [id number] Offset Stem 3 Taper Implanted:Qty: 1 on 01/25/2018 at [facility] Right: Hip [employer] 09/18/2021 [id number] 0 / / [id number] Femoral Head 40mm Implanted:Qty: 1 on 01/25/2018 at [facility] Right: Hip [employer] / / [id number] Explanted Type Area Set Up Mechanic Coil Winding Machines Device Identifier Shelf Expiration Date Model / Serial / Lot Pin Fx 22.9cm 4mm Stnm Thrd Ss 1 End Explanted:Qty: 2 on 01/25/2018 at [facility] [employer] [id number] / / Liner Actb Rnglc Mxrm 24 36mm E-Poly Hip Implanted:Qty: 1 Explanted:Qty: 1 on 01/25/2018 at [facility] Right: Hip [employer] 12/20/2019 [id number] / / [id number] Procedures Procedure Name Priority Date/Time Associated Diagnosis Comments GLUCOSE - POINT OF CARE Routine 01/27/2018 8:14 AM COMMISSIONER CONSERVATION OF RESOURCES from Last 3 Months or Most Recently Relevant to Health Maintenance Results * GLUCOSE - POINT OF CARE (01/27/2018 8:14 AM COMMISSIONER CONSERVATION OF RESOURCES) Glucose WB/POC 101 70 - 106 mg/dL 01/27/2018 11:52 AM COMMISSIONER CONSERVATION OF RESOURCES [facility] Specimen Type CAPILLARY BLOOD 01/27/2018 11:52 AM COMMISSIONER CONSERVATION OF RES[employer] [facility] Blood BLOOD SPECIMEN / Unknown 01/27/2018 8:14 AM COMMISSIONER CONSERVATION OF RESOURCES 01/27/2018 11:52 AM COMMISSIONER CONSERVATION OF RESOURCES Vignesh Gupta IV, MD LAB - POINT OF CARE ORDERABLES Final Result [facility] [address] [place] [address] from Last 3 Months or Most Recently Relevant to Health Maintenance Insurance [facility] Address: [address] [address] [place] [address] [facility] MANAGED MEDICARE ADV Advance Directives * Full Code (Latest Code Status on File) Date Activated Date Inactivated Comments 01/25/2018 12:01 PM 01/27/2018 1:17 PM
[2025-01-23 09:29] LABS: Add Urine Microscopic? NO; Appearance Urine Clear (Clear); Glucose Urine UA Negative (Negative); Leukocyte Esterase Ur Negative (Negative); Nitrate Urine Negative (Negative); Specific Grav Ur 1.010 (1.010-1.020)
[2025-01-23 09:49] LABS: MALB Creatinine Ratio 7.8 mg/g (0-30)
[2025-01-23 10:05] LABS: Alanine Aminotransferase 19 U/L (6-50); Albumin Level 4.7 g/dL (3.5-5.1); Alkaline Phosphatase 66 U/L (38-126); Anion Gap 6 mmol/L (4-12); Aspartate Amino Transferase 24 U/L (17-59); Bilirubin,Total 2.7 mg/dL (0.2-1.3); Blood Urea Nitrogen 17 mg/dL (9-20); Calcium 9.7 mg/dL (8.4-10.2); Carbon Dioxide 31 mmol/L (22-30); Chloride 105 mmol/L (98-107); Cholesterol 155 mg/dL (0-200); Creatine Kinase 53 U/L (55-170); Estimated Glomerular Filt Rate > 60; Glucose 128 mg/dL (65-110); HDL Direct 43 mg/dL; Osmolality Calculated 297 mOsm/kg (285-295); Potassium 4.2 mmol/L (3.4-5.0); Sodium 142 mmol/L (137-145); Total Protein 7.2 g/dL (6.3-8.2); Triglycerides 139 mg/dL (<150); Uric Acid 6.1 mg/dL (3.5-8.5)
[2025-01-23 10:22] LABS: Free T4 Free Thyroxine 1.77 ng/dL (0.78-2.19)
[2025-01-23 10:23] LABS: Free T3 2.86 pg/mL (2.18-3.98)
[2025-01-23 10:36] LABS: Prostate Specific Antigen 0.8 ng/mL (< OR = 4.0); Thyroid Stimulating Hormone 0.884 uIU/mL (0.465-4.680)
[2025-01-23 16:48] LABS: Hemoglobin A1C 5.6 % (<5.7)
== END 2025-01-23 08:46 | disposition home or self-care (01) ==
LOC: CHSLAB 08:46
PROVIDERS: PCP Internal Medicine; Visit Provider Internal Medicine
DX: Z12.5 Encounter for screening for malignant neoplasm of prostate (principal); E11.9 Type 2 diabetes mellitus without complications; E78.2 Mixed hyperlipidemia; I10 Essential (primary) hypertension; E03.8 Other specified hypothyroidism; E79.0 Hyperuricemia without signs of inflammatory arthritis and tophaceous disease
CPT/HCPCS: 36415; 80053; 80061; 81003; 82043; 82550; 83036; 84153; 84439; 84443; 84481; 84550; 85027; G0103

== ENCOUNTER 2025-02-06 09:32 | Outpatient (CLI) | payer MEDICARE, SELFPAY ==
--- NOTE | 2025-03-01 11:05 | WPDHOLTEREM ---
Holter/Event Monitor Holter/Event Monitor Date of procedure: 02/06/25 Holter/Event Procedure: Event Monitor Indications: Syncope Conclusion: 1. 14 days event monitor on 02/06/25. 2. Predominant rhythm is sinus rhythm. HR range 27-138 bpm; average 67 bpm. 27 bpm was on 02/10/25 at 8:57 am due to a 2nd degree AV block, type I. 3. There are occasional premature supraventricular complexes, rare supraventricular couplets, and rare supraventricular triplets. There are 4 episodes of supraventricular tachycardia with fastest at 138 bpm and longest lasting 6 beats. 4. There are occasional premature ventricular complexes, rare ventricular couplets, and rare ventricular triplets, longest ventricular bigeminy was 29.4 seconds, and longest ventricular trigeminy was 13.5 seconds. No ventricular tachycardia. 5. No significant pauses greater than 3 seconds. There is 1 episode of 2nd degree AV block type I described above. 6. No symptoms available for correlation.
== END 2025-02-06 09:33 | disposition home or self-care (01) ==
LOC: CHSCARD 09:39
PROVIDERS: PCP Internal Medicine; Visit Provider Internal Medicine
DX: R55 Syncope and collapse (principal); I49.9 Cardiac arrhythmia, unspecified
CPT/HCPCS: 93246